=== PATIENT | female | born 1975 | race American Indian/Alaskan Native ===

== ENCOUNTER 2018-10-02 10:26 | Observation (INO) | payer OTHER ==
[2018-10-02 10:41] VITALS: BMI 42.5
--- NOTE | 2018-10-02 11:30 | C.PDOC ---
History Of Present Illness 43 y/o female presents to the ED complaining of 2 days of chest pain. States pain began while at work, and initially she attributed pain to a pulled muscle. However, pain is now persistent. Of note patient reports PMHx of DM and HTN. States she lost her insurance, and has not been taking her lisinopril or metformin for > 1 month now. She denies any SOB, fever, chills, sweats, cough, congestion, or URI symptoms. Time Seen by Provider: 10/02/18 11:05 Chief Complaint (Nursing): Chest Pain History Per: Patient History/Exam Limitations: no limitations Onset/Duration Of Symptoms: Days (x2) Current Symptoms Are (Timing): Still Present Past Medical History Reviewed: Historical Data, Nursing Documentation, Vital Signs Vital Signs: Last Vital Signs Temp 99.4 F 10/02/18 10:39 Pulse 98 H 10/02/18 10:39 Resp 18 10/02/18 10:39 BP 150/93 H 10/02/18 10:39 Pulse Ox 100 10/02/18 10:39 - Medical History PMH: Diabetes, HTN Surgical History: No Surg Hx Family History: States: No Known Family Hx - Social History Hx Tobacco Use: No Hx Alcohol Use: Yes Hx Substance Use: No - Immunization History Hx Tetanus Toxoid Vaccination: Yes Hx Influenza Vaccination: Yes Hx Pneumococcal Vaccination: No Review Of Systems Except As Marked, All Systems Reviewed And Found Negative. Constitutional: Negative for: Fever, Sweats Eyes: Negative for: Vision Change Cardiovascular: Positive for: Chest Pain. Negative for: Palpitations Respiratory: Negative for: Shortness of Breath Gastrointestinal: Negative for: Nausea, Vomiting Neurological: Negative for: Weakness, Numbness, Change in Speech, Headache, Dizziness Physical Exam - Physical Exam Appears: Non-toxic, No Acute Distress Skin: Normal Color, Warm, Dry Head: Atraumatic, Normacephalic Eye(s): bilateral: Normal Inspection, PERRL, EOMI Oral Mucosa: Moist Neck: Normal ROM Chest: Symmetrical, No Deformity, No Tenderness Cardiovascular: Rhythm Regular, No Murmur Respiratory: Normal Breath Sounds, No Rales, No Rhonchi, No Wheezing Gastrointestinal/Abdominal: Soft, No Tenderness, No Distention Rectal: Heme Negative Extremity: Bilateral: Atraumatic, Normal Color And Temperature, Normal ROM Neurological/Psych: Oriented x3, Normal Speech ED Course And Treatment - Laboratory Results Result Diagrams: 10/02/18 14:38 10/02/18 11:31 ECG: Interpreted By Me, Viewed By Me ECG Rhythm: Sinus Rhythm (at 99 bpm) ECG Interpretation: No Acute Changes O2 Sat by Pulse Oximetry: 100 (RA) Pulse Ox Interpretation: Normal - Other Rad CXR X-Ray: Read By Radiologist Interpretation: Accession No. : [id number]. Patient Name / ID : MIR SANDERS / [id number]. Exam Date : 10/02/2018 11:24:59 ( Approved ). Study Comment : Sex / Age : F / 43Y. Creator : Antionette Gomez MD. Dictator : Antionette Gomez MD. 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 Approver2 : Report Date : 10/02/2018 11:53:07. My Comment : . HISTORY: chest pain. COMPARISON: No prior. TECHNIQUE: Chest, one view. FINDINGS: Examination limited by habitus. LUNGS: No focal consolidation. Please note that chest x-ray has limited sensitivity for the detection of pulmonary masses. PLEURA: No significant pleural effusion identified. No definite pneumothorax . CARDIOVASCULAR: The cardiomediastinal silhouette appears within normal limits of size. No significant atherosclerotic calcification present. OSSEOUS STRUCTURES: No acute osseous abnormality identified. VISUALIZED UPPER ABDOMEN: Unremarkable. OTHER FINDINGS: None. IMPRESSION: No acute findings identified. - CT Scan/US pelvic US Other Rad Studies (CT/US): Read By Radiologist, Radiology Report Reviewed CT/US Interpretation: Accession No. : [id number]. Patient Name / ID : MIR SANDERS / [id number]. Exam Date : 10/02/2018 16:53:39 ( Approved ). Study Comment : Sex / Age : F / 43Y. Creator : Antionette Gomez MD. Dictator : Antionette Gomez MD. 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 Approver2 : Report Date : 10/02/2018 17:27:16. My Comment : . This report is currently processing and HAS NOT BEEN OFFICIALLY SIGNED BY THE PHYSICIAN - ESTIMATED TIME OF APPROVAL IS 10/02/2018 17:32. Date of service: 10/02/2018. HISTORY: anemia. COMPARISON: None available. TECHNIQUE: Transabdominal pelvic ultrasound. FINDINGS: UTERUS: Measures 17.1 x 8.0 x 12.0 cm. Anteverted. Numerous probable uterine fibroids measuring up to 7.1 cm at the fundus. 1.8 x 1.4 x 2.0 cm pedunculated fundal fibroid. 5.4 x 5.9 x 5.3 cm posterior uterine fibroid. 3.2 x 2.0 x 3.0 cm anterior uterine fibroid. 6.3 x 5.6 x 5.8 cm fundal fibroid. ENDOMETRIUM: Measures 1.5 cm in diameter. CERVIX: No cervical abnormality identified. RIGHT OVARY: Measures 3.6 x 1.8 x 2.6 cm. Blood flow is demonstrated. LEFT OVARY: Measures 3.1 x 1.7 x 3.3 cm. Blood flow is demonstrated. FREE FLUID: Small pelvic free fluid noted. OTHER FINDINGS: None. IMPRESSION: Fibroid uterus as above. Small pelvic free fluid. Progress Note: EKG reviewed, no acute changes. Cardiac work-up initiated i ncluding labs, CXR. Aspirin PO administered. Patient will be monitored on continuous scrap wheeler in the ED. Patient found to be extremely anemic. Patient now sts she has h/o anemia and is taking Iron supplement. Patient sts she never had any work ups for anemia. Case was discussed with who admits for patient's PMD. PRBS were ordered for transfusion. 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 - Scribe Statement The provider has reviewed the documentation as recorded by the Scribe (Briseyda Abreu) All medical record entries made by the Scribe were at my direction and personally dictated by me. I have reviewed the chart and agree that the record accurately reflects my personal performance of the history, physical exam, medical decision making, and the department course for this patient. I have also personally directed, reviewed, and agree with the discharge instructions and disposition. Decision To Admit - Pt Status Changed To: Hospital Disposition Of: Observation - . Bed Request Type: Telemetry Admitting Physician: Nilam Verdin Patient Diagnosis: Chest pain, Anemia
[2018-10-02 11:35] LABS: BASO # 0.1 K/uL (0.0-0.2); BASO % 1.1 % (0.0-2.0); EOS # 0.1 K/uL (0.0-0.7); EOS % 1.6 % (0.0-4.0); LYMPH % 30.2 % (20.0-40.0); MEAN CORPUSCULAR HEMOGLOBIN 18.1 pg (27.0-31.0); MEAN CORPUSCULAR HGB CONC 29.7 g/dL (33.0-37.0); MEAN PLATELET VOLUME 10.8 fL (7.2-11.7); MONO # 0.4 K/uL (0.0-0.8); MONO % 5.7 % (0.0-10.0); NEUT # 4.1 K/uL (1.8-7.0); NEUT % 61.4 % (50.0-75.0); NRBC % 0.1 % (0.0-2.0); RBC 3.75 Mil/uL (3.80-5.20); WHITE BLOOD COUNT 6.7 K/uL (4.8-10.8)
[2018-10-02 11:39] LABS: HCG,QUALITATIVE URINE NEGATIVE (NEGATIVE); HEMOGLOBIN 6.8 g/dL (11.0-16.0); MEAN CELL VOLUME 60.8 fL (81.0-99.0)
[2018-10-02 11:47] LABS: ALBUMIN 4.2 g/dL (3.5-5.0); ALT/SGPT 11 U/L (9-52); AST/SGOT 23 U/L (14-36); BLOOD UREA NITROGEN 11 mg/dL (7-17); CALCIUM 9.1 mg/dl (8.6-10.4); GFR NON-AFRICAN AMERICAN > 60; SQUAMOUS EPITHIAL 3 /hpf (0-5); URINE BACTERIA RARE (<OCC); URINE BILIRUBIN NEGATIVE (NEGATIVE); URINE BLOOD NEGATIVE (NEGATIVE); URINE CLARITY Clear (Clear); URINE COLOR Straw (YELLOW); URINE GLUCOSE (UA) 3+ mg/dL (Normal); URINE LEUKOCYTE ESTERASE TRACE Leu/uL (Negative); URINE PROTEIN 2+ mg/dL (NEGATIVE); URINE UROBILINOGEN NORMAL mg/dL (0.2-1.0)
[2018-10-02 11:55] LABS: PARTIAL THROMBOPLASTIN TIME 23 SECONDS (21-34)
--- NOTE | 2018-10-02 11:56 | RAD ---
HISTORY: chest pain COMPARISON: No prior. TECHNIQUE: Chest, one view. FINDINGS: Examination limited by habitus. LUNGS: No focal consolidation. Please note that chest x-ray has limited sensitivity for the detection of pulmonary masses. PLEURA: No significant pleural effusion identified. No definite pneumothorax . CARDIOVASCULAR: The cardiomediastinal silhouette appears within normal limits of size. No significant atherosclerotic calcification present. OSSEOUS STRUCTURES: No acute osseous abnormality identified. VISUALIZED UPPER ABDOMEN: Unremarkable. OTHER FINDINGS: None. IMPRESSION: No acute findings identified.
[2018-10-02 12:06] LABS: D DIMER < 200 ng/mlDDU (0-243)
[2018-10-02 12:10] LABS: CK-MB < 0.22 ng/mL (0.0-3.38)
[2018-10-02 14:44] LABS: HEMOGLOBIN 6.6 g/dL (11.0-16.0); MEAN CELL VOLUME 60.8 fL (81.0-99.0); MEAN CORPUSCULAR HGB CONC 29.6 g/dL (33.0-37.0); MEAN PLATELET VOLUME 9.3 fL (7.2-11.7); RBC 3.68 Mil/uL (3.80-5.20); RED CELL DISTRIBUTION WIDTH 19.7 % (11.5-14.5); WHITE BLOOD COUNT 6.8 K/uL (4.8-10.8)
[2018-10-02 15:14] LABS: IRON 14 ug/dL (37-170)
[2018-10-02 15:24] LABS: TOTAL IRON BINDING CAPACITY 406 ug/dL (250-450)
[2018-10-02 15:47] LABS: FERRITIN 4.2 ng/mL
--- NOTE | 2018-10-02 17:30 | US ---
Date of service: 10/02/2018 HISTORY: anemia COMPARISON: None available. TECHNIQUE: Transabdominal pelvic ultrasound. FINDINGS: UTERUS: Measures 17.1 x 8.0 x 12.0 cm. Anteverted. Numerous probable uterine fibroids measuring up to 7.1 cm at the fundus. 1.8 x 1.4 x 2.0 cm pedunculated fundal fibroid. 5.4 x 5.9 x 5.3 cm posterior uterine fibroid. 3.2 x 2.0 x 3.0 cm anterior uterine fibroid. 6.3 x 5.6 x 5.8 cm fundal fibroid. ENDOMETRIUM: Measures 1.5 cm in diameter. CERVIX: No cervical abnormality identified. RIGHT OVARY: Measures 3.6 x 1.8 x 2.6 cm. Blood flow is demonstrated. LEFT OVARY: Measures 3.1 x 1.7 x 3.3 cm. Blood flow is demonstrated. FREE FLUID: Small pelvic free fluid noted. OTHER FINDINGS: None. IMPRESSION: Fibroid uterus as above. Small pelvic free fluid.
--- NOTE | 2018-10-02 17:51 | CP.PCM.HP ---
Addendum entered and electronically signed by Crow Veram 10/03/18 07:08: Rectal Exam: No external hemorrhoids seen. No masses, nodules, or tenderness appreciated. No signs of bleeding. Medical student, Ting was present during the examination. Original Note: <Crow Verma - Last Filed: 10/02/18 18:16> History of Present Illness - History of Present Illness History of Present Illness: Patient is a 43 year old female with PMHx of HTN, DM-2, and anemia presenting with chest pain. 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 She describes the pain as having a pinching quality, located on her left and right side of her chest, and 5/10 in severity. She states that she took some ibuprofen and the chest pain resolved. However, the pain started again this morning at 3AM when she was walking to the bathroom. She states that she also had palpitations and decided to go to the ED. Patient states that she has been having palpitations for the past month. She describes the palpitations to be intermittent and only last a few seconds. She states that Ibuprofen makes the pain better and laying completely flat makes the pain worse. Patient states that she was diagnosed with iron deficiency anemia when she was 23. She denies ever having a blood transfusion. She denies chest pain on exertion, diaphoresis, pain radiating to her neck or extremities. She further denies fevers, chills, cough, shortness of breath, abdominal pain, nausea, vomiting, melena, hematemesis, hematochezia, hematuria, or other urinary symptoms. PMD: Dr. Blanca Machado PMHx: DM, HTN, iron deficiency anemia PSHx: denies Allergies: Penicillins- rash Family Hx: Mother has diabetes, father of colon and prostate cancer at 66 years old Social: Drinks wine and beer twice a week, denies tobacco and drug use. 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 Medications: Iron supplements, Metformin 1000mg PO BID, Lisinopril 10mg PO QD (Has not taken medications in the past 2 months due to insurance issues) Present on Admission - Present on Admission Any Indicators Present on Admission: No History of DVT/PE: No History of Uncontrolled Diabetes: No Urinary Catheter: No Decubitus Ulcer Present: No Review of Systems - Constitutional Constitutional: absent: Chills, Fatigue, Fever, Headache - EENT Eyes: absent: Blurred Vision, Change in Vision - Cardiovascular Cardiovascular: Chest Pain, Palpitations. absent: Diaphoresis, Dyspnea - Respiratory Respiratory: absent: Cough, Dyspnea, Hemoptysis, Dyspnea on Exertion, Wheezing - Gastrointestinal Gastrointestinal: absent: Abdominal Pain, Bloating, Coffee Ground Emesis, Constipation, Hematemesis, Hematochezia, Melena - Genitourinary Genitourinary: absent: Dysuria, Hematuria - Menstruation Menstruation: Normal Menses. absent: Heavy Menses - Musculoskeletal Musculoskeletal: absent: Arthralgias - Neurological Neurological: absent: Dizziness Past Patient History - Past Social History Smoking Status: Never Smoked - CARDIAC Hx Hypertension: Yes - ENDOCRINE/METABOLIC Hx Diabetes Mellitus Type 2: Yes - PSYCHIATRIC Hx Substance Use: No - SURGICAL HISTORY Hx Surgeries: No Meds Allergies/Adverse Reactions: Allergies Allergy/AdvReac Type Severity Reaction Status Date / Time Penicillins Allergy Verified 10/02/18 10:40 Physical Exam - Constitutional Appears: Well, Non-toxic, No Acute Distress - Head Exam Head Exam: ATRAUMATIC, NORMOCEPHALIC - Eye Exam Eye Exam: EOMI, Normal appearance, PERRL. absent: Scleral icterus - ENT Exam ENT Exam: Mucous Membranes Moist - Respiratory Exam Respiratory Exam: Clear to Auscultation Bilateral. absent: Accessory Muscle Use, Rales, Rhonchi, Wheezes, Respiratory Distress - Cardiovascular Exam Cardiovascular Exam: REGULAR RHYTHM, +S1, +S2. absent: Gallop, Rubs, Systolic Murmur Additional comments: Chest pain reproducible upon palpation of left costochondral joints between ribs 8-9 - GI/Abdominal Exam GI & Abdominal Exam: Normal Bowel Sounds, Soft. absent: Distended, Firm, Guarding, Tenderness - Extremities Exam Extremities exam: Positive for: normal capillary refill, normal inspection. Negative for: calf tenderness, pedal edema - Back Exam Back exam: absent: CVA tenderness (L), CVA tenderness (R) - Neurological Exam Neurological exam: Alert, CN II-XII Intact, Oriented x3 - Psychiatric Exam Psychiatric exam: Normal Affect, Normal Mood - Skin Skin Exam: Dry, Intact, Pallor (Pallor noted on bilateral hands), Warm Results - Vital Signs Recent Vital Signs: Last Vital Signs Temp 98.9 F 10/02/18 14:03 Pulse 72 10/02/18 15:32 Resp 20 10/02/18 15:32 BP 127/81 10/02/18 15:32 Pulse Ox 100 10/02/18 17:30 - Labs Result Diagrams: 10/02/18 14:38 10/02/18 11:31 Labs: Laboratory Results - last 24 hr 10/02/18 10/02/18 10/02/18 11:31 11:31 11:31 WBC 6.7 RBC 3.75 L Hgb 6.8 L D Hct 22.8 L MCV 60.8 L D MCH 18.1 L MCHC 29.7 L RDW 20.0 H Plt Count 246 MPV 10.8 Neut % (Auto) 61.4 Lymph % (Auto) 30.2 Perkins % (Auto) 5.7 Eos % (Auto) 1.6 Baso % (Auto) 1.1 Neut # (Auto) 4.1 Lymph # (Auto) 2.0 Perkins # (Auto) 0.4 Eos # (Auto) 0.1 Baso # (Auto) 0.1 Differential Comment Retic Count PT 11.0 INR 1.0 APTT 23 D-Dimer, Quantitative < 200 Sodium Potassium Chloride Carbon Dioxide Anion Gap BUN Creatinine Est GFR ( Amer) Est GFR (Non-Af Amer) Random Glucose Calcium Iron TIBC Ferritin Total Bilirubin AST ALT Alkaline Phosphatase Lactate Dehydrogenase Total Creatine Kinase CK-MB (Mass) Troponin I Total Protein Albumin Globulin Albumin/Globulin Ratio Urine Color Straw Urine Clarity Clear Urine pH 5.0 Ur Specific [place] 1.029 Urine Protein 2+ H Urine Glucose (UA) 3+ H Urine Ketones Negative Urine Blood Negative Urine Nitrate Negative Urine Bilirubin Negative Urine Urobilinogen Normal Ur Leukocyte Esterase Trace Urine WBC (Auto) 7 H Urine RBC (Auto) 2 Ur Squamous Epith Cells 3 Urine Bacteria Rare Urine HCG, Qual Negative Stool Occult Blood Alcohol, Quantitative Blood Type Antibody Screen 10/02/18 10/02/18 10/02/18 11:31 14:19 14:38 WBC 6.8 RBC 3.68 L Hgb 6.6 L Hct 22.4 L MCV 60.8 L MCH 18.0 L MCHC 29.6 L RDW 19.7 H Plt Count 248 MPV 9.3 Neut % (Auto) Lymph % (Auto) Perkins % (Auto) Eos % (Auto) Baso % (Auto) Neut # (Auto) Lymph # (Auto) Perkins # (Auto) Eos # (Auto) Baso # (Auto) Differential Comment Retic Count 2.8 H PT INR APTT D-Dimer, Quantitative Sodium 136 Potassium 4.2 Chloride 103 Carbon Dioxide 22 Anion Gap 15 BUN 11 Creatinine 0.5 L Est GFR ( Amer) > 60 Est GFR (Non-Af Amer) > 60 Random Glucose 352 H Calcium 9.1 Iron TIBC Ferritin Total Bilirubin 0.5 AST 23 ALT 11 Alkaline Phosphatase 88 Lactate Dehydrogenase Total Creatine Kinase 66 CK-MB (Mass) < 0.22 Troponin I < 0.0120 Total Protein 8.3 Albumin 4.2 Globulin 4.1 H Albumin/Globulin Ratio 1.0 Urine Color Urine Clarity Urine pH Ur Specific [place] Urine Protein Urine Glucose (UA) Urine Ketones Urine Blood Urine Nitrate Urine Bilirubin Urine Urobilinogen Ur Leukocyte Esterase Urine WBC (Auto) Urine RBC (Auto) Ur Squamous Epith Cells Urine Bacteria Urine HCG, Qual Stool Occult Blood Negative Alcohol, Quantitative Blood Type Antibody Screen 10/02/18 10/02/18 10/02/18 14:38 14:38 14:38 WBC RBC Hgb Hct MCV MCH MCHC RDW Plt Count MPV Neut % (Auto) Lymph % (Auto) [place] % (Auto) Eos % (Auto) Baso % (Auto) Neut # (Auto) Lymph # (Auto) Perkins # (Auto) Eos # (Auto) Baso # (Auto) Differential Comment Retic Count PT INR APTT D-Dimer, Quantitative Sodium Potassium Chloride Carbon Dioxide Anion Gap BUN Creatinine Est GFR ( Amer) Est GFR (Non-Af Amer) Random Glucose Calcium Iron 14 L TIBC 406 Ferritin 4.2 Total Bilirubin AST ALT Alkaline Phosphatase Lactate Dehydrogenase 489 Total Creatine Kinase CK-MB (Mass) Troponin I Total Protein Albumin Globulin Albumin/Globulin Ratio Urine Color Urine Clarity Urine pH Ur Specific [place] Urine Protein Urine Glucose (UA) Urine Ketones Urine Blood Urine Nitrate Urine Bilirubin Urine Urobilinogen Ur Leukocyte Esterase Urine WBC (Auto) Urine RBC (Auto) Ur Squamous Epith Cells Urine Bacteria Urine HCG, Qual Stool Occult Blood Alcohol, Quantitative Blood Type A POSITIVE Antibody Screen Negative 10/02/18 14:39 WBC RBC Hgb Hct MCV MCH MCHC RDW Plt Count MPV Neut % (Auto) Lymph % (Auto) Perkins % (Auto) Eos % (Auto) Baso % (Auto) Neut # (Auto) Lymph # (Auto) Perkins # (Auto) Eos # (Auto) Baso # (Auto) Differential Comment Retic Count PT INR APTT D-Dimer, Quantitative Sodium Potassium Chloride Carbon Dioxide Anion Gap BUN Creatinine Est GFR ( Amer) Est GFR (Non-Af Amer) Random Glucose Calcium Iron TIBC Ferritin Total Bilirubin AST ALT Alkaline Phosphatase Lactate Dehydrogenase Total Creatine Kinase CK-MB (Mass) Troponin I Total Protein Albumin Globulin Albumin/Globulin Ratio Urine Color Urine Clarity Urine pH Ur Specific [place] Urine Protein Urine Glucose (UA) Urine Ketones Urine Blood Urine Nitrate Urine Bilirubin Urine Urobilinogen Ur Leukocyte Esterase Urine WBC (Auto) Urine RBC (Auto) Ur Squamous Epith Cells Urine Bacteria Urine HCG, Qual Stool Occult Blood Alcohol, Quantitative < 10 Blood Type Antibody Screen Assessment & Plan - Assessment and Plan (Free Text) Assessment: Patient is a 43 year old female with PMHx of HTN, DM-2, and presenting with chest pain. Patient was found to have Hb of 6.8 on admission, will receive 2 units of PRBC. Plan: Chest pain: - Rule out ACS - Cardiac risks: HTN and DM-2 - Monitor on telemetry - EKG on admission: NSR @ 99 bpm, no ST changes - Serial EKG's: f/u - Echocardiogram: f/u - CXR (10/02): no acute disease Anemia: - Patient has a history of iron deficiency anemia, used to take iron supplements - Hb/Hct on admission: 6.8/22.8 - Type and cross - 2 units of PRBC - Stool occult blood: negative - Pelvic U/S: f/u - Iron studies: f/u - Heme/Onc, Dr. Rose Keane consulted - GI, Dr. Moore consulted Hx of DM: - ISS- low dose - Hypoglycemia protocol - Accuchecks ACHS - HgA1C: f/u - Lipid panel: f/u Hx of HTN: - Hold antihypertensives Hx of alcohol use: - Blood alcohol level: f/u Prophylaxis/diet: - SCD's - Chemical anticoagulants held 2/2 anemia - Protonix 40mg IV BID Case discussed with Dr. Velvet Verma, PGY-1 <Nilam Verdin V - Last Filed: 10/02/18 23:56> Results - Vital Signs Recent Vital Signs: Last Vital Signs Temp 98.5 F 10/02/18 22:50 Pulse 78 10/02/18 22:50 Resp 18 10/02/18 22:50 BP 119/77 10/02/18 22:50 Pulse Ox 98 10/02/18 19:12 - Labs Result Diagrams: 10/02/18 14:38 10/02/18 11:31 Labs: Laboratory Results - last 24 hr 10/02/18 10/02/18 10/02/18 11:31 11:31 11:31 WBC 6.7 RBC 3.75 L Hgb 6.8 L D Hct 22.8 L MCV 60.8 L D MCH 18.1 L MCHC 29.7 L RDW 20.0 H Plt Count 246 MPV 10.8 Neut % (Auto) 61.4 Lymph % (Auto) 30.2 Perkins % (Auto) 5.7 Eos % (Auto) 1.6 Baso % (Auto) 1.1 Neut # (Auto) 4.1 Lymph # (Auto) 2.0 Perkins # (Auto) 0.4 Eos # (Auto) 0.1 Baso # (Auto) 0.1 Differential Comment Retic Count PT 11.0 INR 1.0 APTT 23 D-Dimer, Quantitative < 200 Sodium Potassium Chloride Carbon Dioxide Anion Gap BUN Creatinine Est GFR ( Amer) Est GFR (Non-Af Amer) POC Glucose (mg/dL) Random Glucose Calcium Iron TIBC Ferritin Total Bilirubin AST ALT Alkaline Phosphatase Lactate Dehydrogenase Total Creatine Kinase CK-MB (Mass) Troponin I Total Protein Albumin Globulin Albumin/Globulin Ratio Urine Color Straw Urine Clarity Clear Urine pH 5.0 Ur Specific [place] 1.029 Urine Protein 2+ H Urine Glucose (UA) 3+ H Urine Ketones Negative Urine Blood Negative Urine Nitrate Negative Urine Bilirubin Negative Urine Urobilinogen Normal Ur Leukocyte Esterase Trace Urine WBC (Auto) 7 H Urine RBC (Auto) 2 Ur Squamous Epith Cells 3 Urine Bacteria Rare Urine HCG, Qual Negative Stool Occult Blood Alcohol, Quantitative Blood Type Antibody Screen 10/02/18 10/02/18 10/02/18 11:31 14:19 14:38 WBC 6.8 RBC 3.68 L Hgb 6.6 L Hct 22.4 L MCV 60.8 L MCH 18.0 L MCHC 29.6 L RDW 19.7 H Plt Count 248 MPV 9.3 Neut % (Auto) Lymph % (Auto) [place] % (Auto) Eos % (Auto) Baso % (Auto) Neut # (Auto) Lymph # (Auto) [place] # (Auto) Eos # (Auto) Baso # (Auto) Differential Comment Retic Count 2.8 H PT INR APTT D-Dimer, Quantitative Sodium 136 Potassium 4.2 Chloride 103 Carbon Dioxide 22 Anion Gap 15 BUN 11 Creatinine 0.5 L Est GFR ( Amer) > 60 Est GFR (Non-Af Amer) > 60 POC Glucose (mg/dL) Random Glucose 352 H Calcium 9.1 Iron TIBC Ferritin Total Bilirubin 0.5 AST 23 ALT 11 Alkaline Phosphatase 88 Lactate Dehydrogenase Total Creatine Kinase 66 CK-MB (Mass) < 0.22 Troponin I < 0.0120 Total Protein 8.3 Albumin 4.2 Globulin 4.1 H Albumin/Globulin Ratio 1.0 Urine Color Urine Clarity Urine pH Ur Specific [place] Urine Protein Urine Glucose (UA) Urine Ketones Urine Blood Urine Nitrate Urine Bilirubin Urine Urobilinogen Ur Leukocyte Esterase Urine WBC (Auto) Urine RBC (Auto) Ur Squamous Epith Cells Urine Bacteria Urine HCG, Qual Stool Occult Blood Negative Alcohol, Quantitative Blood Type Antibody Screen 10/02/18 10/02/18 10/02/18 14:38 14:38 14:38 WBC RBC Hgb Hct MCV MCH MCHC RDW Plt Count MPV Neut % (Auto) Lymph % (Auto) [place] % (Auto) Eos % (Auto) Baso % (Auto) Neut # (Auto) Lymph # (Auto) [place] # (Auto) Eos # (Auto) Baso # (Auto) Differential Comment Retic Count PT INR APTT D-Dimer, Quantitative Sodium Potassium Chloride Carbon Dioxide Anion Gap BUN Creatinine Est GFR ( Amer) Est GFR (Non-Af Amer) POC Glucose (mg/dL) Random Glucose Calcium Iron 14 L TIBC 406 Ferritin 4.2 Total Bilirubin AST ALT Alkaline Phosphatase Lactate Dehydrogenase 489 Total Creatine Kinase CK-MB (Mass) Troponin I Total Protein Albumin Globulin Albumin/Globulin Ratio Urine Color Urine Clarity Urine pH Ur Specific [place] Urine Protein Urine Glucose (UA) Urine Ketones Urine Blood Urine Nitrate Urine Bilirubin Urine Urobilinogen Ur Leukocyte Esterase Urine WBC (Auto) Urine RBC (Auto) Ur Squamous Epith Cells Urine Bacteria Urine HCG, Qual Stool Occult Blood Alcohol, Quantitative Blood Type A POSITIVE Antibody Screen Negative 10/02/18 10/02/18 10/02/18 14:39 18:23 21:15 WBC RBC Hgb Hct MCV MCH MCHC RDW Plt Count MPV Neut % (Auto) Lymph % (Auto) [place] % (Auto) Eos % (Auto) Baso % (Auto) Neut # (Auto) Lymph # (Auto) [place] # (Auto) Eos # (Auto) Baso # (Auto) Differential Comment Retic Count PT INR APTT D-Dimer, Quantitative Sodium Potassium Chloride Carbon Dioxide Anion Gap BUN Creatinine Est GFR ( Amer) Est GFR (Non-Af Amer) POC Glucose (mg/dL) 205 H Random Glucose Calcium Iron TIBC Ferritin Total Bilirubin AST ALT Alkaline Phosphatase Lactate Dehydrogenase Total Creatine Kinase CK-MB (Mass) Troponin I < 0.0120 Total Protein Albumin Globulin Albumin/Globulin Ratio Urine Color Urine Clarity Urine pH Ur Specific [place] Urine Protein Urine Glucose (UA) Urine Ketones Urine Blood Urine Nitrate Urine Bilirubin Urine Urobilinogen Ur Leukocyte Esterase Urine WBC (Auto) Urine RBC (Auto) Ur Squamous Epith Cells Urine Bacteria Urine HCG, Qual Stool Occult Blood Alcohol, Quantitative < 10 Blood Type Antibody Screen Attending/Attestation - Attestation I have personally seen and examined this patient.: Yes I have fully participated in the care of the patient.: Yes I have reviewed all pertinent clinical information: Yes Notes (Text): This is 43 year old Female with history of diabetes, hypertension, and iron deficiency anemia comes in to the ED reporting chest pain and associated palpitations. 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 Patient reports chest pain reoccurred today which was enough to bring her to the hospital. Patient also reports for the past month she has been having palpitations, which have lasted for seconds, which seem to resolve at rest, but did not worry here until today when she had chest pain. Patient has not had prior ME. She has cardiac risk factor for diabetes, and hypertension. She reports her insurance is not working and has not been able to cover her metformin and lisinopril which she is used to taking but has not taken for the past 2 months. Patient reports she was diagnosed with iron deficiency anemia at the age 23 and reports she would need to take iron supplements. She reports she lives in the [facility] [place] the [place]. I did indicate her in our EMR in 2016 that her hgb was 10 which surprised her but she reports she is compliant with her iron supplements prior to 2 months with her insurance issues. She reports she has never needed blood transfusions or seen a blood specialist. She denies history of fibriods or abnormal periods. Patient reports she last saw her OB-MEDICAID PLAN COMPLIANCE DIRECTOR through [facility] about 2 years ago, where completed pap which was normal and was told to come back in two years. 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 She reports he was diagnosed at age 66 but shortly after succumbed to cancer in 3-4 months of diagnoses. Patient herself has not had a colonoscopy or endoscopy. Patient at time of my exam is going for pelvic US to rule out integrated specialist origin. Resident has performed rectal which was negative. Stool occult. Repeat CBC prior to blood transfusion confirms hgb in the 6s. Resident has described risk involved with blood transfusion we will type and cross 2 units to give to patient overnight. I have spoken with ED PA, we have ordered reticulocyte count, ferritin, iron studies, and occult blood prior to blood transfusion. Assessment/Plan 1) Chest pain; Palpitations * Cardiac risks: HTN and DM-2 * Monitor on telemetry * EKG on admission: NSR @ 99 bpm, no ST changes * Serial EKG's with cardiac enzymes X3, 6 hours apart; initial troponin negative, ekg nsr * Echocardiogram: f/u * CXR (10/02): no acute disease * D-dimer: negative * Check; a1c, lipid panel, TSH, and Free T4 2) Symptomatic Anemia: * Heme/Onc, Dr. Rose Keane consulted * GI, Dr. Moore consulted * Patient has a prior history of iron deficiency anemia, used to take iron supplements * Hb/Hct on admission: 6.8/22.8 * Type and cross; 2 units of PRBC * Stool occult blood: negative * Pelvic U/S: f/u * Reticulocyte index: 0.75 (hypoproliferation) * Ferritin low * iron low * pending b12, folate 3) History of Diabetes * ISS- low dose * Hypoglycemia protocol * Accuchecks Q6H * Novolog sliding scale subq6H * HgA1C: f/u * Lipid panel: f/u 4) Hx of HTN: * Hold antihypertensives in light of anemia 5) Hx of alcohol use: * Blood alcohol level: negative * Note it is an occasional use * MCV is microcytic 6) Prophylaxis/diet: * SCD's * Chemical anticoagulants held 2/2 anemia * GI ppx: Protonix 40mg IV BID
[2018-10-02] MEDS ORDERED: (Novolog) Insulin Aspart, Recombinant 100 u/ml 10 ml vial SC SCH (22:00)
[2018-10-02] MEDS ORDERED: (Novolin R) Insulin Human Regular 100 units/ml vial SC SCH (22:00)
[2018-10-02] MEDS ORDERED: Glucagon Recombinant 1 mg Inj IM PRN (23:32)
[2018-10-02] MEDS ORDERED: Dextrose 50% SYRINGE Inj (50 ml) IV PRN (23:32)
[2018-10-03] MEDS: (Novolog) Insulin Aspart, Recombinant 100 u/ml 10 ml vial SC SCH ×5 (00:35→22:45)
[2018-10-03 01:36] LABS: CK-MB < 0.22 ng/mL (0.0-3.38)
[2018-10-03 07:28] LABS: BASO # 0.1 K/uL (0.0-0.2); BASO % 1.1 % (0.0-2.0); EOS # 0.1 K/uL (0.0-0.7); EOS % 1.1 % (0.0-4.0); HEMOGLOBIN 7.8 g/dL (11.0-16.0); LYMPH # 1.8 K/uL (1.0-4.3); LYMPH % 25.6 % (20.0-40.0); MEAN CELL VOLUME 64.7 fL (81.0-99.0); MEAN CORPUSCULAR HGB CONC 30.9 g/dL (33.0-37.0); MEAN PLATELET VOLUME 9.3 fL (7.2-11.7); MONO # 0.4 K/uL (0.0-0.8); MONO % 6.1 % (0.0-10.0); NEUT # 4.6 K/uL (1.8-7.0); NEUT % 66.1 % (50.0-75.0); RBC 3.93 Mil/uL (3.80-5.20); RED CELL DISTRIBUTION WIDTH 24.1 % (11.5-14.5); WHITE BLOOD COUNT 6.9 K/uL (4.8-10.8)
[2018-10-03 07:56] LABS: LDL CHOLESTEROL 109 mg/dL (0-129)
[2018-10-03 08:05] LABS: FREE T4 1.13 ng/dL (0.78-2.19)
[2018-10-03 08:10] LABS: ALB/GLOB RATIO 1.1 (1.0-2.1); ALBUMIN 3.8 g/dL (3.5-5.0); ALT/SGPT 16 U/L (9-52); AST/SGOT 28 U/L (14-36); BLOOD UREA NITROGEN 8 mg/dL (7-17); CALCIUM 8.8 mg/dl (8.6-10.4); GFR NON-AFRICAN AMERICAN > 60; HDL CHOLESTEROL 42 mg/dL (30-70)
[2018-10-03 08:55] VITALS: RESP 20
[2018-10-03 08:55] LABS: FOLATE 11.4 ng/mL
[2018-10-03] MEDS ORDERED: Ferric Sodium Gluconat Complex 62.5 mg/5 ml Vial IVPB SCH (10:45)
--- NOTE | 2018-10-03 11:12 | CP.PCM.CON ---
History of Present Illness - History of Present Illness History of Present Illness: 43 year old female with a history of DM, HTN, dysfunctional uterine bleeding, presenting with chest pain, found to have anemia. The patient notes to heavy periods and passage of clots. She notes to progressive shortness of breath and chest pain which prompted her to come to the hospital. She is s/p 2U PRBC and notes to feeling better. She no longer has chest pain. Pelvic ultrasound to reveal a fibroid uterus. Past medical history: DM, HTN, dysfunctional uterine bleeding. Past surgical history: Denies Family history: Father had colon cancer Social history: Denies tobacco, drinks alcohol socially, denies illicit drug use. Allergies: PCN Review of systems: All remaining review of systems including HEENT, cardio vascular, respiratory, gastrointestinal, genitourinary, musculoskeletal, dermatologic, neurologic, and psychiatric are negative unless mentioned in the HPI. Past Patient History - Past Social History Smoking Status: Never Smoked - CARDIAC Hx Hypertension: Yes - ENDOCRINE/METABOLIC Hx Diabetes Mellitus Type 2: Yes - PSYCHIATRIC Hx Substance Use: No - SURGICAL HISTORY Hx Surgeries: No Meds Allergies/Adverse Reactions: Allergies Allergy/AdvReac Type Severity Reaction Status Date / Time Penicillins Allergy Verified 10/02/18 10:40 - Medications Medications: Current Medications Dextrose (Dextrose 50% Inj) 0 ml IV STAT PRN; Protocol PRN Reason: Hypoglycemia Protocol Dextrose (Glutose 15) 0 gm PO ONCE PRN; Protocol PRN Reason: Hypoglycemia Protocol Glucagon (Glucagen Diagnostic Kit) 0 mg IM STAT PRN; Protocol PRN Reason: Hypoglycemia Protocol Dextrose (Dextrose 5% In Water 1000 Ml) 1,000 mls @ 0 mls/hr IV .Q0M PRN; Protocol PRN Reason: Hypoglycemia Protocol Influenza Virus Vaccine (Fluzone Quad [id number]) 60 mcg IM .ONCE ONE Stop: 10/04/18 10:01 Insulin Aspart (Novolog) 0 unit SC Q6H ACE; Protocol Last Admin: 10/03/18 06:02 Dose: Not Given Pantoprazole Sodium (Protonix Inj) 40 mg IVP Q12H ACE Last Admin: 10/03/18 04:12 Dose: 40 mg Pneumococcal Polyvalent Vaccine (Pneumovax 23 Vaccine) 0.5 ml IM .ONCE ONE Stop: 10/04/18 10:01 Physical Exam - Head Exam Head Exam: ATRAUMATIC - Eye Exam Eye Exam: Normal appearance - ENT Exam ENT Exam: Mucous Membranes Dry - Respiratory Exam Respiratory Exam: NORMAL BREATHING PATTERN - Cardiovascular Exam Cardiovascular Exam: +S1, +S2 - GI/Abdominal Exam GI & Abdominal Exam: Normal Bowel Sounds - Extremities Exam Extremities exam: Positive for: normal inspection - Neurological Exam Neurological exam: Oriented x3 - Psychiatric Exam Psychiatric exam: Normal Affect, Normal Mood - Skin Skin Exam: Warm Results - Vital Signs Recent Vital Signs: Last Vital Signs Temp 98.7 F 10/03/18 08:00 Pulse 75 10/03/18 08:00 Resp 20 10/03/18 08:00 BP 120/77 10/03/18 08:00 Pulse Ox 95 10/03/18 08:00 - Labs Result Diagrams: 10/03/18 07:18 10/03/18 07:18 Labs: Laboratory Results - last 24 hr 10/02/18 10/02/18 10/02/18 11:31 11:31 11:31 WBC 6.7 RBC 3.75 L Hgb 6.8 L D Hct 22.8 L MCV 60.8 L D MCH 18.1 L MCHC 29.7 L RDW 20.0 H Plt Count 246 MPV 10.8 Neut % (Auto) 61.4 Lymph % (Auto) 30.2 [place] % (Auto) 5.7 Eos % (Auto) 1.6 Baso % (Auto) 1.1 Neut # (Auto) 4.1 Lymph # (Auto) 2.0 [place] # (Auto) 0.4 Eos # (Auto) 0.1 Baso # (Auto) 0.1 Differential Comment Retic Count Haptoglobin PT 11.0 INR 1.0 APTT 23 D-Dimer, Quantitative < 200 Sodium Potassium Chloride Carbon Dioxide Anion Gap BUN Creatinine Est GFR ( Amer) Est GFR (Non-Af Amer) POC Glucose (mg/dL) Random Glucose Hemoglobin A1c Calcium Phosphorus Magnesium Iron TIBC Ferritin Total Bilirubin AST ALT Alkaline Phosphatase Lactate Dehydrogenase Total Creatine Kinase CK-MB (Mass) Troponin I Total Protein Albumin Globulin Albumin/Globulin Ratio Triglycerides Cholesterol LDL Cholesterol Direct HDL Cholesterol Vitamin B12 Folate Free T4 TSH 3rd Generation Urine Color Straw Urine Clarity Clear Urine pH 5.0 Ur Specific [place] 1.029 Urine Protein 2+ H Urine Glucose (UA) 3+ H Urine Ketones Negative Urine Blood Negative Urine Nitrate Negative Urine Bilirubin Negative Urine Urobilinogen Normal Ur Leukocyte Esterase Trace Urine WBC (Auto) 7 H Urine RBC (Auto) 2 Ur Squamous Epith Cells 3 Urine Bacteria Rare Urine HCG, Qual Negative Stool Occult Blood Alcohol, Quantitative Blood Type Antibody Screen 10/02/18 10/02/18 10/02/18 11:31 14:19 14:38 WBC 6.8 RBC 3.68 L Hgb 6.6 L Hct 22.4 L MCV 60.8 L MCH 18.0 L MCHC 29.6 L RDW 19.7 H Plt Count 248 MPV 9.3 Neut % (Auto) Lymph % (Auto) [place] % (Auto) Eos % (Auto) Baso % (Auto) Neut # (Auto) Lymph # (Auto) [place] # (Auto) Eos # (Auto) Baso # (Auto) Differential Comment Retic Count 2.8 H Haptoglobin PT INR APTT D-Dimer, Quantitative Sodium 136 Potassium 4.2 Chloride 103 Carbon Dioxide 22 Anion Gap 15 BUN 11 Creatinine 0.5 L Est GFR ( Amer) > 60 Est GFR (Non-Af Amer) > 60 POC Glucose (mg/dL) Random Glucose 352 H Hemoglobin A1c Calcium 9.1 Phosphorus Magnesium Iron TIBC Ferritin Total Bilirubin 0.5 AST 23 ALT 11 Alkaline Phosphatase 88 Lactate Dehydrogenase Total Creatine Kinase 66 CK-MB (Mass) < 0.22 Troponin I < 0.0120 Total Protein 8.3 Albumin 4.2 Globulin 4.1 H Albumin/Globulin Ratio 1.0 Triglycerides Cholesterol LDL Cholesterol Direct HDL Cholesterol Vitamin B12 Folate Free T4 TSH 3rd Generation Urine Color Urine Clarity Urine pH Ur Specific [place] Urine Protein Urine Glucose (UA) Urine Ketones Urine Blood Urine Nitrate Urine Bilirubin Urine Urobilinogen Ur Leukocyte Esterase Urine WBC (Auto) Urine RBC (Auto) Ur Squamous Epith Cells Urine Bacteria Urine HCG, Qual Stool Occult Blood Negative Alcohol, Quantitative Blood Type Antibody Screen 10/02/18 10/02/18 10/02/18 14:38 14:38 14:38 WBC RBC Hgb Hct MCV MCH MCHC RDW Plt Count MPV Neut % (Auto) Lymph % (Auto) [place] % (Auto) Eos % (Auto) Baso % (Auto) Neut # (Auto) Lymph # (Auto) [place] # (Auto) Eos # (Auto) Baso # (Auto) Differential Comment Retic Count Haptoglobin PT INR APTT D-Dimer, Quantitative Sodium Potassium Chloride Carbon Dioxide Anion Gap BUN Creatinine Est GFR ( Amer) Est GFR (Non-Af Amer) POC Glucose (mg/dL) Random Glucose Hemoglobin A1c Calcium Phosphorus Magnesium Iron 14 L TIBC 406 Ferritin 4.2 Total Bilirubin AST ALT Alkaline Phosphatase Lactate Dehydrogenase 489 Total Creatine Kinase CK-MB (Mass) Troponin I Total Protein Albumin Globulin Albumin/Globulin Ratio Triglycerides Cholesterol LDL Cholesterol Direct HDL Cholesterol Vitamin B12 Folate Free T4 TSH 3rd Generation Urine Color Urine Clarity Urine pH Ur Specific [place] Urine Protein Urine Glucose (UA) Urine Ketones Urine Blood Urine Nitrate Urine Bilirubin Urine Urobilinogen Ur Leukocyte Esterase Urine WBC (Auto) Urine RBC (Auto) Ur Squamous Epith Cells Urine Bacteria Urine HCG, Qual Stool Occult Blood Alcohol, Quantitative Blood Type A POSITIVE Antibody Screen Negative 10/02/18 10/02/18 10/02/18 14:39 18:23 21:15 WBC RBC Hgb Hct MCV MCH MCHC RDW Plt Count MPV Neut % (Auto) Lymph % (Auto) [place] % (Auto) Eos % (Auto) Baso % (Auto) Neut # (Auto) Lymph # (Auto) [place] # (Auto) Eos # (Auto) Baso # (Auto) Differential Comment Retic Count Haptoglobin PT INR APTT D-Dimer, Quantitative Sodium Potassium Chloride Carbon Dioxide Anion Gap BUN Creatinine Est GFR ( Amer) Est GFR (Non-Af Amer) POC Glucose (mg/dL) 205 H Random Glucose Hemoglobin A1c Calcium Phosphorus Magnesium Iron TIBC Ferritin Total Bilirubin AST ALT Alkaline Phosphatase Lactate Dehydrogenase Total Creatine Kinase CK-MB (Mass) Troponin I < 0.0120 Total Protein Albumin Globulin Albumin/Globulin Ratio Triglycerides Cholesterol LDL Cholesterol Direct HDL Cholesterol Vitamin B12 Folate Free T4 TSH 3rd Generation Urine Color Urine Clarity Urine pH Ur Specific [place] Urine Protein Urine Glucose (UA) Urine Ketones Urine Blood Urine Nitrate Urine Bilirubin Urine Urobilinogen Ur Leukocyte Esterase Urine WBC (Auto) Urine RBC (Auto) Ur Squamous Epith Cells Urine Bacteria Urine HCG, Qual Stool Occult Blood Alcohol, Quantitative < 10 Blood Type Antibody Screen 10/03/18 10/03/18 10/03/18 00:20 00:45 05:34 WBC RBC Hgb Hct MCV MCH MCHC RDW Plt Count MPV Neut % (Auto) Lymph % (Auto) [place] % (Auto) Eos % (Auto) Baso % (Auto) Neut # (Auto) Lymph # (Auto) [place] # (Auto) Eos # (Auto) Baso # (Auto) Differential Comment Retic Count Haptoglobin PT INR APTT D-Dimer, Quantitative Sodium Potassium Chloride Carbon Dioxide Anion Gap BUN Creatinine Est GFR ( Amer) Est GFR (Non-Af Amer) POC Glucose (mg/dL) 164 H 191 H Random Glucose Hemoglobin A1c Calcium Phosphorus Magnesium Iron TIBC Ferritin Total Bilirubin AST ALT Alkaline Phosphatase Lactate Dehydrogenase Total Creatine Kinase 62 CK-MB (Mass) < 0.22 Troponin I < 0.0120 Total Protein Albumin Globulin Albumin/Globulin Ratio Triglycerides Cholesterol LDL Cholesterol Direct HDL Cholesterol Vitamin B12 Folate Free T4 TSH 3rd Generation Urine Color Urine Clarity Urine pH Ur Specific [place] Urine Protein Urine Glucose (UA) Urine Ketones Urine Blood Urine Nitrate Urine Bilirubin Urine Urobilinogen Ur Leukocyte Esterase Urine WBC (Auto) Urine RBC (Auto) Ur Squamous Epith Cells Urine Bacteria Urine HCG, Qual Stool Occult Blood Alcohol, Quantitative Blood Type Antibody Screen 10/03/18 10/03/18 10/03/18 07:18 07:18 07:18 WBC 6.9 RBC 3.93 Hgb 7.8 L Hct 25.4 L MCV 64.7 L D MCH 20.0 L MCHC 30.9 L RDW 24.1 H Plt Count 219 MPV 9.3 Neut % (Auto) 66.1 Lymph % (Auto) 25.6 [place] % (Auto) 6.1 Eos % (Auto) 1.1 Baso % (Auto) 1.1 Neut # (Auto) 4.6 Lymph # (Auto) 1.8 [place] # (Auto) 0.4 Eos # (Auto) 0.1 Baso # (Auto) 0.1 Differential Comment Retic Count Haptoglobin 178.6 PT INR APTT D-Dimer, Quantitative Sodium 135 Potassium 3.6 Chloride 103 Carbon Dioxide 24 Anion Gap 11 BUN 8 Creatinine 0.5 L Est GFR ( Amer) > 60 Est GFR (Non-Af Amer) > 60 POC Glucose (mg/dL) Random Glucose 218 H Hemoglobin A1c Calcium 8.8 Phosphorus 3.7 Magnesium 1.9 Iron TIBC Ferritin Total Bilirubin 0.8 AST 28 ALT 16 Alkaline Phosphatase 92 Lactate Dehydrogenase Total Creatine Kinase CK-MB (Mass) Troponin I Total Protein 7.3 Albumin 3.8 Globulin 3.5 Albumin/Globulin Ratio 1.1 Triglycerides 199 H D Cholesterol 197 LDL Cholesterol Direct 109 HDL Cholesterol 42 Vitamin B12 427 Folate 11.4 Free T4 1.13 TSH 3rd Generation 1.78 Urine Color Urine Clarity Urine pH Ur Specific [place] Urine Protein Urine Glucose (UA) Urine Ketones Urine Blood Urine Nitrate Urine Bilirubin Urine Urobilinogen Ur Leukocyte Esterase Urine WBC (Auto) Urine RBC (Auto) Ur Squamous Epith Cells Urine Bacteria Urine HCG, Qual Stool Occult Blood Alcohol, Quantitative Blood Type Antibody Screen 10/03/18 07:18 WBC RBC Hgb Hct MCV MCH MCHC RDW Plt Count MPV Neut % (Auto) Lymph % (Auto) [place] % (Auto) Eos % (Auto) Baso % (Auto) Neut # (Auto) Lymph # (Auto) [place] # (Auto) Eos # (Auto) Baso # (Auto) Differential Comment Retic Count Haptoglobin PT INR APTT D-Dimer, Quantitative Sodium Potassium Chloride Carbon Dioxide Anion Gap BUN Creatinine Est GFR ( Amer) Est GFR (Non-Af Amer) POC Glucose (mg/dL) Random Glucose Hemoglobin A1c 9.2 H Calcium Phosphorus Magnesium Iron TIBC Ferritin Total Bilirubin AST ALT Alkaline Phosphatase Lactate Dehydrogenase Total Creatine Kinase CK-MB (Mass) Troponin I Total Protein Albumin Globulin Albumin/Globulin Ratio Triglycerides Cholesterol LDL Cholesterol Direct HDL Cholesterol Vitamin B12 Folate Free T4 TSH 3rd Generation Urine Color Urine Clarity Urine pH Ur Specific [place] Urine Protein Urine Glucose (UA) Urine Ketones Urine Blood Urine Nitrate Urine Bilirubin Urine Urobilinogen Ur Leukocyte Esterase Urine WBC (Auto) Urine RBC (Auto) Ur Squamous Epith Cells Urine Bacteria Urine HCG, Qual Stool Occult Blood Alcohol, Quantitative Blood Type Antibody Screen Assessment & Plan (1) Anemia Assessment and Plan: iron deficiency anemia from dysfunctional uterine bleeding secondary to uterine fibroids s/p PRBC transfusion will start IV iron outpatient [employer] outpatient f/u with me in 1 week Thank you for this interesting consult. Status: Acute
--- NOTE | 2018-10-03 11:22 | CP.PCM.CON ---
History of Present Illness - History of Present Illness History of Present Illness: Cody Delaney, PGY-[address] Diaz Ms. Hannah is a 43 F with Past medical history of HTN diagnosed in 2003, DM2 diagnosed in 2003, and Fe Deficiency Anemia who presents with atypical chest pain. 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 Patient reports she took an Ibuprofen 600 mg at that time that relieved the pain. Patient then reports she awoke the next morning at 3 am with throbbing pain on the L side of the chest that radiated to the R side. Patient reports a lingering R sided pain that has been relieved since her admission. This pain caused patient to come to ED for evaluation. Patient's last reported menstrual period was 09/06/18, which lasted for four days (reportedly normal for her) with large clots and a need to change pads 4-5 times a day. Patient states normally she feels cold even when her heat is on at home, and feels fatigue exacerbated during her menstrual periods. Patient reports that she has not taken her medications (Metformin 1000mg PO BID, Lisinopril 10mg PO QD , ferrous sulfate) for a few months due to complications with insurance. Patient recently reclaimed her insurance within last week. Patient denies any cardiac issues in immediate family, but reports colon cancer diagnosed at age 66 in her father and DM in her mother diagnosed in her 40s. Patient denies any past echo or stress tests performed. Patient denies tobacco use. Past Patient History - Past Social History Smoking Status: Never Smoked - CARDIAC Hx Hypertension: Yes - ENDOCRINE/METABOLIC Hx Diabetes Mellitus Type 2: Yes - PSYCHIATRIC Hx Substance Use: No - SURGICAL HISTORY Hx Surgeries: No Meds Allergies/Adverse Reactions: Allergies Allergy/AdvReac Type Severity Reaction Status Date / Time Penicillins Allergy Verified 10/02/18 10:40 - Medications Medications: Current Medications Dextrose (Dextrose 50% Inj) 0 ml IV STAT PRN; Protocol PRN Reason: Hypoglycemia Protocol Dextrose (Glutose 15) 0 gm PO ONCE PRN; Protocol PRN Reason: Hypoglycemia Protocol Ferric Sodium Gluconate Complex (Ferrlecit) 125 mg IVPB DAILY ACE Stop: 10/11/18 10:46 Glucagon (Glucagen Diagnostic Kit) 0 mg IM STAT PRN; Protocol PRN Reason: Hypoglycemia Protocol Dextrose (Dextrose 5% In Water 1000 Ml) 1,000 mls @ 0 mls/hr IV .Q0M PRN; Protocol PRN Reason: Hypoglycemia Protocol Influenza Virus Vaccine (Fluzone Quad [id number]) 60 mcg IM .ONCE ONE Stop: 10/04/18 10:01 Insulin Aspart (Novolog) 0 unit SC Q6H ACE; Protocol Last Admin: 10/03/18 06:02 Dose: Not Given Pantoprazole Sodium (Protonix Inj) 40 mg IVP Q12H ACE Last Admin: 10/03/18 04:12 Dose: 40 mg Pneumococcal Polyvalent Vaccine (Pneumovax 23 Vaccine) 0.5 ml IM .ONCE ONE Stop: 10/04/18 10:01 Physical Exam - Constitutional Appears: Well, Non-toxic, No Acute Distress - Head Exam Head Exam: ATRAUMATIC, NORMOCEPHALIC - Respiratory Exam Respiratory Exam: Clear to Auscultation Bilateral, NORMAL BREATHING PATTERN. absent: Chest Wall Tenderness - Cardiovascular Exam Cardiovascular Exam: RRR, +S1, +S2. absent: JVD - Extremities Exam Extremities exam: Negative for: pedal edema - Skin Skin Exam: Dry, Intact, Normal Color, Warm Results - Vital Signs Recent Vital Signs: Last Vital Signs Temp 98.7 F 10/03/18 08:00 Pulse 75 10/03/18 08:00 Resp 20 10/03/18 08:00 BP 120/77 10/03/18 08:00 Pulse Ox 95 10/03/18 08:00 - Labs Result Diagrams: 10/03/18 07:18 10/03/18 07:18 Labs: Laboratory Results - last 24 hr 10/02/18 10/02/18 10/02/18 11:31 11:31 11:31 WBC 6.7 RBC 3.75 L Hgb 6.8 L D Hct 22.8 L MCV 60.8 L D MCH 18.1 L MCHC 29.7 L RDW 20.0 H Plt Count 246 MPV 10.8 Neut % (Auto) 61.4 Lymph % (Auto) 30.2 [place] % (Auto) 5.7 Eos % (Auto) 1.6 Baso % (Auto) 1.1 Neut # (Auto) 4.1 Lymph # (Auto) 2.0 [place] # (Auto) 0.4 Eos # (Auto) 0.1 Baso # (Auto) 0.1 Differential Comment Retic Count Haptoglobin PT 11.0 INR 1.0 APTT 23 D-Dimer, Quantitative < 200 Sodium Potassium Chloride Carbon Dioxide Anion Gap BUN Creatinine Est GFR ( Amer) Est GFR (Non-Af Amer) POC Glucose (mg/dL) Random Glucose Hemoglobin A1c Calcium Phosphorus Magnesium Iron TIBC Ferritin Total Bilirubin AST ALT Alkaline Phosphatase Lactate Dehydrogenase Total Creatine Kinase CK-MB (Mass) Troponin I Total Protein Albumin Globulin Albumin/Globulin Ratio Triglycerides Cholesterol LDL Cholesterol Direct HDL Cholesterol Vitamin B12 Folate Free T4 TSH 3rd Generation Urine Color Straw Urine Clarity Clear Urine pH 5.0 Ur Specific [place] 1.029 Urine Protein 2+ H Urine Glucose (UA) 3+ H Urine Ketones Negative Urine Blood Negative Urine Nitrate Negative Urine Bilirubin Negative Urine Urobilinogen Normal Ur Leukocyte Esterase Trace Urine WBC (Auto) 7 H Urine RBC (Auto) 2 Ur Squamous Epith Cells 3 Urine Bacteria Rare Urine HCG, Qual Negative Stool Occult Blood Alcohol, Quantitative Blood Type Antibody Screen 10/02/18 10/02/18 10/02/18 11:31 14:19 14:38 WBC 6.8 RBC 3.68 L Hgb 6.6 L Hct 22.4 L MCV 60.8 L MCH 18.0 L MCHC 29.6 L RDW 19.7 H Plt Count 248 MPV 9.3 Neut % (Auto) Lymph % (Auto) [place] % (Auto) Eos % (Auto) Baso % (Auto) Neut # (Auto) Lymph # (Auto) [place] # (Auto) Eos # (Auto) Baso # (Auto) Differential Comment Retic Count 2.8 H Haptoglobin PT INR APTT D-Dimer, Quantitative Sodium 136 Potassium 4.2 Chloride 103 Carbon Dioxide 22 Anion Gap 15 BUN 11 Creatinine 0.5 L Est GFR ( Amer) > 60 Est GFR (Non-Af Amer) > 60 POC Glucose (mg/dL) Random Glucose 352 H Hemoglobin A1c Calcium 9.1 Phosphorus Magnesium Iron TIBC Ferritin Total Bilirubin 0.5 AST 23 ALT 11 Alkaline Phosphatase 88 Lactate Dehydrogenase Total Creatine Kinase 66 CK-MB (Mass) < 0.22 Troponin I < 0.0120 Total Protein 8.3 Albumin 4.2 Globulin 4.1 H Albumin/Globulin Ratio 1.0 Triglycerides Cholesterol LDL Cholesterol Direct HDL Cholesterol Vitamin B12 Folate Free T4 TSH 3rd Generation Urine Color Urine Clarity Urine pH Ur Specific [place] Urine Protein Urine Glucose (UA) Urine Ketones Urine Blood Urine Nitrate Urine Bilirubin Urine Urobilinogen Ur Leukocyte Esterase Urine WBC (Auto) Urine RBC (Auto) Ur Squamous Epith Cells Urine Bacteria Urine HCG, Qual Stool Occult Blood Negative Alcohol, Quantitative Blood Type Antibody Screen 10/02/18 10/02/18 10/02/18 14:38 14:38 14:38 WBC RBC Hgb Hct MCV MCH MCHC RDW Plt Count MPV Neut % (Auto) Lymph % (Auto) [place] % (Auto) Eos % (Auto) Baso % (Auto) Neut # (Auto) Lymph # (Auto) [place] # (Auto) Eos # (Auto) Baso # (Auto) Differential Comment Retic Count Haptoglobin PT INR APTT D-Dimer, Quantitative Sodium Potassium Chloride Carbon Dioxide Anion Gap BUN Creatinine Est GFR ( Amer) Est GFR (Non-Af Amer) POC Glucose (mg/dL) Random Glucose Hemoglobin A1c Calcium Phosphorus Magnesium Iron 14 L TIBC 406 Ferritin 4.2 Total Bilirubin AST ALT Alkaline Phosphatase Lactate Dehydrogenase 489 Total Creatine Kinase CK-MB (Mass) Troponin I Total Protein Albumin Globulin Albumin/Globulin Ratio Triglycerides Cholesterol LDL Cholesterol Direct HDL Cholesterol Vitamin B12 Folate Free T4 TSH 3rd Generation Urine Color Urine Clarity Urine pH Ur Specific [place] Urine Protein Urine Glucose (UA) Urine Ketones Urine Blood Urine Nitrate Urine Bilirubin Urine Urobilinogen Ur Leukocyte Esterase Urine WBC (Auto) Urine RBC (Auto) Ur Squamous Epith Cells Urine Bacteria Urine HCG, Qual Stool Occult Blood Alcohol, Quantitative Blood Type A POSITIVE Antibody Screen Negative 10/02/18 10/02/18 10/02/18 14:39 18:23 21:15 WBC RBC Hgb Hct MCV MCH MCHC RDW Plt Count MPV Neut % (Auto) Lymph % (Auto) [place] % (Auto) Eos % (Auto) Baso % (Auto) Neut # (Auto) Lymph # (Auto) [place] # (Auto) Eos # (Auto) Baso # (Auto) Differential Comment Retic Count Haptoglobin PT INR APTT D-Dimer, Quantitative Sodium Potassium Chloride Carbon Dioxide Anion Gap BUN Creatinine Est GFR ( Amer) Est GFR (Non-Af Amer) POC Glucose (mg/dL) 205 H Random Glucose Hemoglobin A1c Calcium Phosphorus Magnesium Iron TIBC Ferritin Total Bilirubin AST ALT Alkaline Phosphatase Lactate Dehydrogenase Total Creatine Kinase CK-MB (Mass) Troponin I < 0.0120 Total Protein Albumin Globulin Albumin/Globulin Ratio Triglycerides Cholesterol LDL Cholesterol Direct HDL Cholesterol Vitamin B12 Folate Free T4 TSH 3rd Generation Urine Color Urine Clarity Urine pH Ur Specific [place] Urine Protein Urine Glucose (UA) Urine Ketones Urine Blood Urine Nitrate Urine Bilirubin Urine Urobilinogen Ur Leukocyte Esterase Urine WBC (Auto) Urine RBC (Auto) Ur Squamous Epith Cells Urine Bacteria Urine HCG, Qual Stool Occult Blood Alcohol, Quantitative < 10 Blood Type Antibody Screen 10/03/18 10/03/18 10/03/18 00:20 00:45 05:34 WBC RBC Hgb Hct MCV MCH MCHC RDW Plt Count MPV Neut % (Auto) Lymph % (Auto) [place] % (Auto) Eos % (Auto) Baso % (Auto) Neut # (Auto) Lymph # (Auto) [place] # (Auto) Eos # (Auto) Baso # (Auto) Differential Comment Retic Count Haptoglobin PT INR APTT D-Dimer, Quantitative Sodium Potassium Chloride Carbon Dioxide Anion Gap BUN Creatinine Est GFR ( Amer) Est GFR (Non-Af Amer) POC Glucose (mg/dL) 164 H 191 H Random Glucose Hemoglobin A1c Calcium Phosphorus Magnesium Iron TIBC Ferritin Total Bilirubin AST ALT Alkaline Phosphatase Lactate Dehydrogenase Total Creatine Kinase 62 CK-MB (Mass) < 0.22 Troponin I < 0.0120 Total Protein Albumin Globulin Albumin/Globulin Ratio Triglycerides Cholesterol LDL Cholesterol Direct HDL Cholesterol Vitamin B12 Folate Free T4 TSH 3rd Generation Urine Color Urine Clarity Urine pH Ur Specific [place] Urine Protein Urine Glucose (UA) Urine Ketones Urine Blood Urine Nitrate Urine Bilirubin Urine Urobilinogen Ur Leukocyte Esterase Urine WBC (Auto) Urine RBC (Auto) Ur Squamous Epith Cells Urine Bacteria Urine HCG, Qual Stool Occult Blood Alcohol, Quantitative Blood Type Antibody Screen 10/03/18 10/03/18 10/03/18 07:18 07:18 07:18 WBC 6.9 RBC 3.93 Hgb 7.8 L Hct 25.4 L MCV 64.7 L D MCH 20.0 L MCHC 30.9 L RDW 24.1 H Plt Count 219 MPV 9.3 Neut % (Auto) 66.1 Lymph % (Auto) 25.6 [place] % (Auto) 6.1 Eos % (Auto) 1.1 Baso % (Auto) 1.1 Neut # (Auto) 4.6 Lymph # (Auto) 1.8 [place] # (Auto) 0.4 Eos # (Auto) 0.1 Baso # (Auto) 0.1 Differential Comment Retic Count Haptoglobin 178.6 PT INR APTT D-Dimer, Quantitative Sodium 135 Potassium 3.6 Chloride 103 Carbon Dioxide 24 Anion Gap 11 BUN 8 Creatinine 0.5 L Est GFR ( Amer) > 60 Est GFR (Non-Af Amer) > 60 POC Glucose (mg/dL) Random Glucose 218 H Hemoglobin A1c Calcium 8.8 Phosphorus 3.7 Magnesium 1.9 Iron TIBC Ferritin Total Bilirubin 0.8 AST 28 ALT 16 Alkaline Phosphatase 92 Lactate Dehydrogenase Total Creatine Kinase CK-MB (Mass) Troponin I Total Protein 7.3 Albumin 3.8 Globulin 3.5 Albumin/Globulin Ratio 1.1 Triglycerides 199 H D Cholesterol 197 LDL Cholesterol Direct 109 HDL Cholesterol 42 Vitamin B12 427 Folate 11.4 Free T4 1.13 TSH 3rd Generation 1.78 Urine Color Urine Clarity Urine pH Ur Specific [place] Urine Protein Urine Glucose (UA) Urine Ketones Urine Blood Urine Nitrate Urine Bilirubin Urine Urobilinogen Ur Leukocyte Esterase Urine WBC (Auto) Urine RBC (Auto) Ur Squamous Epith Cells Urine Bacteria Urine HCG, Qual Stool Occult Blood Alcohol, Quantitative Blood Type Antibody Screen 10/03/18 07:18 WBC RBC Hgb Hct MCV MCH MCHC RDW Plt Count MPV Neut % (Auto) Lymph % (Auto) [place] % (Auto) Eos % (Auto) Baso % (Auto) Neut # (Auto) Lymph # (Auto) [place] # (Auto) Eos # (Auto) Baso # (Auto) Differential Comment Retic Count Haptoglobin PT INR APTT D-Dimer, Quantitative Sodium Potassium Chloride Carbon Dioxide Anion Gap BUN Creatinine Est GFR ( Amer) Est GFR (Non-Af Amer) POC Glucose (mg/dL) Random Glucose Hemoglobin A1c 9.2 H Calcium Phosphorus Magnesium Iron TIBC Ferritin Total Bilirubin AST ALT Alkaline Phosphatase Lactate Dehydrogenase Total Creatine Kinase CK-MB (Mass) Troponin I Total Protein Albumin Globulin Albumin/Globulin Ratio Triglycerides Cholesterol LDL Cholesterol Direct HDL Cholesterol Vitamin B12 Folate Free T4 TSH 3rd Generation Urine Color Urine Clarity Urine pH Ur Specific [place] Urine Protein Urine Glucose (UA) Urine Ketones Urine Blood Urine Nitrate Urine Bilirubin Urine Urobilinogen Ur Leukocyte Esterase Urine WBC (Auto) Urine RBC (Auto) Ur Squamous Epith Cells Urine Bacteria Urine HCG, Qual Stool Occult Blood Alcohol, Quantitative Blood Type Antibody Screen Assessment & Plan - Assessment and Plan (Free Text) Assessment: Ms. Hannah is a 43 F with PMHx of DM, HTN, and Fe Def anemia s/p 2 units PRBC transfusion who presents with atypical chest pain. Atypical chest pain Substernal throbbing pain associated with paroxysmal palpitations, exacerbated by patient activity, pain radiation to shoulders ASA loading dose given in ED Troponins negative x3 EKG upon presentation shows NSR @ 67 bpm, no ST or T wave changes, f/u final read F/u echo to be performed today F/u repeat EKG Exercise stress test to be performed tomorrow AM 10/04/18 If stress negative tomorrow AM, can be discharged on medical therapy Reviewed importance of close follow up Microcytic Fe Deficiency Anemia Hgb 6.8 on admission, MCV 60s, improved to 7.8 s/p 2 units PRBC transfused Currently not on ASA, NSAID or antiplatelet therapy due to risk of bleeding Continue to monitor as per GI and Hem recommendations Patient seen, case reviewed. Further recs per Dr. Diaz. Cody Delaney, PGY-1
--- NOTE | 2018-10-03 11:24 | CP.PCM.CON ---
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 Upon evaluation it was noted patient has a marked microcytic anemia and GI consult was requested. Patient has a long history of known Iron deficiency anemia, managed with oral iron replacement by her PCP DR Salgado, likely due to menorrhagia and heavy clots with menses every month, and now exacerbated because she admits to iron non compliance x 1 month. Patient denies any alarming GI symptoms. Stool OB is negative. Review of Systems - Constitutional Constitutional: absent: Weight Loss, Weakness - EENT Eyes: absent: Change in Vision Ears: absent: Ear Pain Nose/Mouth/Throat: absent: Epistaxis - Breasts Breasts: absent: Mass - Cardiovascular Cardiovascular: Chest Pain. absent: Dyspnea on Exertion - Respiratory Respiratory: absent: Cough, Dyspnea - Gastrointestinal Gastrointestinal: absent: Abdominal Pain, Change in Bowel Habits, Hematochezia, Melena - Genitourinary Genitourinary: absent: Dysuria - Reproductive: Female Reproductive:Female: Heavy Menses - Musculoskeletal Musculoskeletal: absent: Back Pain - Integumentary Integumentary: absent: Jaundice - Neurological Neurological: absent: Weakness - Psychiatric Psychiatric: absent: Behavioral Changes - Hematologic/Lymphatic Hematologic: absent: Easy Bruising Past Patient History - Past Medical History & Family History Pertinent Family History: Father- Colon Cancer - Past Social History Smoking Status: Never Smoked - CARDIAC Hx Hypertension: Yes - ENDOCRINE/METABOLIC Hx Diabetes Mellitus Type 2: Yes - PSYCHIATRIC Hx Substance Use: No - SURGICAL HISTORY Hx Surgeries: No Meds Allergies/Adverse Reactions: Allergies Allergy/AdvReac Type Severity Reaction Status Date / Time Penicillins Allergy Verified 10/02/18 10:40 - Medications Medications: Current Medications Dextrose (Dextrose 50% Inj) 0 ml IV STAT PRN; Protocol PRN Reason: Hypoglycemia Protocol Dextrose (Glutose 15) 0 gm PO ONCE PRN; Protocol PRN Reason: Hypoglycemia Protocol Ferric Sodium Gluconate Complex (Ferrlecit) 125 mg IVPB DAILY ACE Stop: 10/11/18 10:46 Glucagon (Glucagen Diagnostic Kit) 0 mg IM STAT PRN; Protocol PRN Reason: Hypoglycemia Protocol Dextrose (Dextrose 5% In Water 1000 Ml) 1,000 mls @ 0 mls/hr IV .Q0M PRN; Protocol PRN Reason: Hypoglycemia Protocol Influenza Virus Vaccine (Fluzone Quad [id number]) 60 mcg IM .ONCE ONE Stop: 10/04/18 10:01 Insulin Aspart (Novolog) 0 unit SC Q6H ACE; Protocol Last Admin: 10/03/18 06:02 Dose: Not Given Pantoprazole Sodium (Protonix Inj) 40 mg IVP Q12H [facility] Last Admin: 10/03/18 04:12 Dose: 40 mg Pneumococcal Polyvalent Vaccine (Pneumovax 23 Vaccine) 0.5 ml IM .ONCE ONE Stop: 10/04/18 10:01 Physical Exam - Constitutional Appears: Well, No Acute Distress - Head Exam Head Exam: NORMOCEPHALIC - Eye Exam Eye Exam: absent: Scleral icterus - ENT Exam ENT Exam: Normal Exam - Neck Exam Neck exam: Positive for: Normal Inspection - Respiratory Exam Respiratory Exam: NORMAL BREATHING PATTERN - Cardiovascular Exam Cardiovascular Exam: REGULAR RHYTHM - GI/Abdominal Exam GI & Abdominal Exam: Soft. absent: Mass, Tenderness - Rectal Exam Rectal Exam: Deferred - Extremities Exam Extremities exam: Positive for: normal inspection - Neurological Exam Neurological exam: Alert, Oriented x3 - Psychiatric Exam Psychiatric exam: Normal Affect, Normal Mood - Skin Skin Exam: Normal Color Results - Vital Signs Recent Vital Signs: Last Vital Signs Temp 98.7 F 10/03/18 08:00 Pulse 75 10/03/18 08:00 Resp 20 10/03/18 08:00 BP 120/77 10/03/18 08:00 Pulse Ox 95 10/03/18 08:00 - Labs Result Diagrams: 10/03/18 07:18 10/03/18 07:18 Labs: Laboratory Results - last 24 hr 10/02/18 10/02/18 10/02/18 11:31 11:31 11:31 WBC 6.7 RBC 3.75 L Hgb 6.8 L D Hct 22.8 L MCV 60.8 L D MCH 18.1 L MCHC 29.7 L RDW 20.0 H Plt Count 246 MPV 10.8 Neut % (Auto) 61.4 Lymph % (Auto) 30.2 Josephine % (Auto) 5.7 Eos % (Auto) 1.6 Baso % (Auto) 1.1 Neut # (Auto) 4.1 Lymph # (Auto) 2.0 Josephine # (Auto) 0.4 Eos # (Auto) 0.1 Baso # (Auto) 0.1 Differential Comment Retic Count Haptoglobin PT 11.0 INR 1.0 APTT 23 D-Dimer, Quantitative < 200 Sodium Potassium Chloride Carbon Dioxide Anion Gap BUN Creatinine Est GFR ( Amer) Est GFR (Non-Af Amer) POC Glucose (mg/dL) Random Glucose Hemoglobin A1c Calcium Phosphorus Magnesium Iron TIBC Ferritin Total Bilirubin AST ALT Alkaline Phosphatase Lactate Dehydrogenase Total Creatine Kinase CK-MB (Mass) Troponin I Total Protein Albumin Globulin Albumin/Globulin Ratio Triglycerides Cholesterol LDL Cholesterol Direct HDL Cholesterol Vitamin B12 Folate Free T4 TSH 3rd Generation Urine Color Straw Urine Clarity Clear Urine pH 5.0 Ur Specific [place] 1.029 Urine Protein 2+ H Urine Glucose (UA) 3+ H Urine Ketones Negative Urine Blood Negative Urine Nitrate Negative Urine Bilirubin Negative Urine Urobilinogen Normal Ur Leukocyte Esterase Trace Urine WBC (Auto) 7 H Urine RBC (Auto) 2 Ur Squamous Epith Cells 3 Urine Bacteria Rare Urine HCG, Qual Negative Stool Occult Blood Alcohol, Quantitative Blood Type Antibody Screen 10/02/18 10/02/18 10/02/18 11:31 14:19 14:38 WBC 6.8 RBC 3.68 L Hgb 6.6 L Hct 22.4 L MCV 60.8 L MCH 18.0 L MCHC 29.6 L RDW 19.7 H Plt Count 248 MPV 9.3 Neut % (Auto) Lymph % (Auto) Josephine % (Auto) Eos % (Auto) Baso % (Auto) Neut # (Auto) Lymph # (Auto) Josephine # (Auto) Eos # (Auto) Baso # (Auto) Differential Comment Retic Count 2.8 H Haptoglobin PT INR APTT D-Dimer, Quantitative Sodium 136 Potassium 4.2 Chloride 103 Carbon Dioxide 22 Anion Gap 15 BUN 11 Creatinine 0.5 L Est GFR ( Amer) > 60 Est GFR (Non-Af Amer) > 60 POC Glucose (mg/dL) Random Glucose 352 H Hemoglobin A1c Calcium 9.1 Phosphorus Magnesium Iron TIBC Ferritin Total Bilirubin 0.5 AST 23 ALT 11 Alkaline Phosphatase 88 Lactate Dehydrogenase Total Creatine Kinase 66 CK-MB (Mass) < 0.22 Troponin I < 0.0120 Total Protein 8.3 Albumin 4.2 Globulin 4.1 H Albumin/Globulin Ratio 1.0 Triglycerides Cholesterol LDL Cholesterol Direct HDL Cholesterol Vitamin B12 Folate Free T4 TSH 3rd Generation Urine Color Urine Clarity Urine pH Ur Specific [place] Urine Protein Urine Glucose (UA) Urine Ketones Urine Blood Urine Nitrate Urine Bilirubin Urine Urobilinogen Ur Leukocyte Esterase Urine WBC (Auto) Urine RBC (Auto) Ur Squamous Epith Cells Urine Bacteria Urine HCG, Qual Stool Occult Blood Negative Alcohol, Quantitative Blood Type Antibody Screen 10/02/18 10/02/18 10/02/18 14:38 14:38 14:38 WBC RBC Hgb Hct MCV MCH MCHC RDW Plt Count MPV Neut % (Auto) Lymph % (Auto) Josephine % (Auto) Eos % (Auto) Baso % (Auto) Neut # (Auto) Lymph # (Auto) Josephine # (Auto) Eos # (Auto) Baso # (Auto) Differential Comment Retic Count Haptoglobin PT INR APTT D-Dimer, Quantitative Sodium Potassium Chloride Carbon Dioxide Anion Gap BUN Creatinine Est GFR ( Amer) Est GFR (Non-Af Amer) POC Glucose (mg/dL) Random Glucose Hemoglobin A1c Calcium Phosphorus Magnesium Iron 14 L TIBC 406 Ferritin 4.2 Total Bilirubin AST ALT Alkaline Phosphatase Lactate Dehydrogenase 489 Total Creatine Kinase CK-MB (Mass) Troponin I Total Protein Albumin Globulin Albumin/Globulin Ratio Triglycerides Cholesterol LDL Cholesterol Direct HDL Cholesterol Vitamin B12 Folate Free T4 TSH 3rd Generation Urine Color Urine Clarity Urine pH Ur Specific [place] Urine Protein Urine Glucose (UA) Urine Ketones Urine Blood Urine Nitrate Urine Bilirubin Urine Urobilinogen Ur Leukocyte Esterase Urine WBC (Auto) Urine RBC (Auto) Ur Squamous Epith Cells Urine Bacteria Urine HCG, Qual Stool Occult Blood Alcohol, Quantitative Blood Type A POSITIVE Antibody Screen Negative 10/02/18 10/02/18 10/02/18 14:39 18:23 21:15 WBC RBC Hgb Hct MCV MCH MCHC RDW Plt Count MPV Neut % (Auto) Lymph % (Auto) Josephine % (Auto) Eos % (Auto) Baso % (Auto) Neut # (Auto) Lymph # (Auto) Josephine # (Auto) Eos # (Auto) Baso # (Auto) Differential Comment Retic Count Haptoglobin PT INR APTT D-Dimer, Quantitative Sodium Potassium Chloride Carbon Dioxide Anion Gap BUN Creatinine Est GFR ( Amer) Est GFR (Non-Af Amer) POC Glucose (mg/dL) 205 H Random Glucose Hemoglobin A1c Calcium Phosphorus Magnesium Iron TIBC Ferritin Total Bilirubin AST ALT Alkaline Phosphatase Lactate Dehydrogenase Total Creatine Kinase CK-MB (Mass) Troponin I < 0.0120 Total Protein Albumin Globulin Albumin/Globulin Ratio Triglycerides Cholesterol LDL Cholesterol Direct HDL Cholesterol Vitamin B12 Folate Free T4 TSH 3rd Generation Urine Color Urine Clarity Urine pH Ur Specific [place] Urine Protein Urine Glucose (UA) Urine Ketones Urine Blood Urine Nitrate Urine Bilirubin Urine Urobilinogen Ur Leukocyte Esterase Urine WBC (Auto) Urine RBC (Auto) Ur Squamous Epith Cells Urine Bacteria Urine HCG, Qual Stool Occult Blood Alcohol, Quantitative < 10 Blood Type Antibody Screen 10/03/18 10/03/18 10/03/18 00:20 00:45 05:34 WBC RBC Hgb Hct MCV MCH MCHC RDW Plt Count MPV Neut % (Auto) Lymph % (Auto) Josephine % (Auto) Eos % (Auto) Baso % (Auto) Neut # (Auto) Lymph # (Auto) Josephine # (Auto) Eos # (Auto) Baso # (Auto) Differential Comment Retic Count Haptoglobin PT INR APTT D-Dimer, Quantitative Sodium Potassium Chloride Carbon Dioxide Anion Gap BUN Creatinine Est GFR ( Amer) Est GFR (Non-Af Amer) POC Glucose (mg/dL) 164 H 191 H Random Glucose Hemoglobin A1c Calcium Phosphorus Magnesium Iron TIBC Ferritin Total Bilirubin AST ALT Alkaline Phosphatase Lactate Dehydrogenase Total Creatine Kinase 62 CK-MB (Mass) < 0.22 Troponin I < 0.0120 Total Protein Albumin Globulin Albumin/Globulin Ratio Triglycerides Cholesterol LDL Cholesterol Direct HDL Cholesterol Vitamin B12 Folate Free T4 TSH 3rd Generation Urine Color Urine Clarity Urine pH Ur Specific [place] Urine Protein Urine Glucose (UA) Urine Ketones Urine Blood Urine Nitrate Urine Bilirubin Urine Urobilinogen Ur Leukocyte Esterase Urine WBC (Auto) Urine RBC (Auto) Ur Squamous Epith Cells Urine Bacteria Urine HCG, Qual Stool Occult Blood Alcohol, Quantitative Blood Type Antibody Screen 10/03/18 10/03/18 10/03/18 07:18 07:18 07:18 WBC 6.9 RBC 3.93 Hgb 7.8 L Hct 25.4 L MCV 64.7 L D MCH 20.0 L MCHC 30.9 L RDW 24.1 H Plt Count 219 MPV 9.3 Neut % (Auto) 66.1 Lymph % (Auto) 25.6 Josephine % (Auto) 6.1 Eos % (Auto) 1.1 Baso % (Auto) 1.1 Neut # (Auto) 4.6 Lymph # (Auto) 1.8 Josephine # (Auto) 0.4 Eos # (Auto) 0.1 Baso # (Auto) 0.1 Differential Comment Retic Count Haptoglobin 178.6 PT INR APTT D-Dimer, Quantitative Sodium 135 Potassium 3.6 Chloride 103 Carbon Dioxide 24 Anion Gap 11 BUN 8 Creatinine 0.5 L Est GFR ( Amer) > 60 Est GFR (Non-Af Amer) > 60 POC Glucose (mg/dL) Random Glucose 218 H Hemoglobin A1c Calcium 8.8 Phosphorus 3.7 Magnesium 1.9 Iron TIBC Ferritin Total Bilirubin 0.8 AST 28 ALT 16 Alkaline Phosphatase 92 Lactate Dehydrogenase Total Creatine Kinase CK-MB (Mass) Troponin I Total Protein 7.3 Albumin 3.8 Globulin 3.5 Albumin/Globulin Ratio 1.1 Triglycerides 199 H D Cholesterol 197 LDL Cholesterol Direct 109 HDL Cholesterol 42 Vitamin B12 427 Folate 11.4 Free T4 1.13 TSH 3rd Generation 1.78 Urine Color Urine Clarity Urine pH Ur Specific [place] Urine Protein Urine Glucose (UA) Urine Ketones Urine Blood Urine Nitrate Urine Bilirubin Urine Urobilinogen Ur Leukocyte Esterase Urine WBC (Auto) Urine RBC (Auto) Ur Squamous Epith Cells Urine Bacteria Urine HCG, Qual Stool Occult Blood Alcohol, Quantitative Blood Type Antibody Screen 10/03/18 07:18 WBC RBC Hgb Hct MCV MCH MCHC RDW Plt Count MPV Neut % (Auto) Lymph % (Auto) Josephine % (Auto) Eos % (Auto) Baso % (Auto) Neut # (Auto) Lymph # (Auto) Josephine # (Auto) Eos # (Auto) Baso # (Auto) Differential Comment Retic Count Haptoglobin PT INR APTT D-Dimer, Quantitative Sodium Potassium Chloride Carbon Dioxide Anion Gap BUN Creatinine Est GFR ( Amer) Est GFR (Non-Af Amer) POC Glucose (mg/dL) Random Glucose Hemoglobin A1c 9.2 H Calcium Phosphorus Magnesium Iron TIBC Ferritin Total Bilirubin AST ALT Alkaline Phosphatase Lactate Dehydrogenase Total Creatine Kinase CK-MB (Mass) Troponin I Total Protein Albumin Globulin Albumin/Globulin Ratio Triglycerides Cholesterol LDL Cholesterol Direct HDL Cholesterol Vitamin B12 Folate Free T4 TSH 3rd Generation Urine Color Urine Clarity Urine pH Ur Specific [place] Urine Protein Urine Glucose (UA) Urine Ketones Urine Blood Urine Nitrate Urine Bilirubin Urine Urobilinogen Ur Leukocyte Esterase Urine WBC (Auto) Urine RBC (Auto) Ur Squamous Epith Cells Urine Bacteria Urine HCG, Qual Stool Occult Blood Alcohol, Quantitative Blood Type Antibody Screen Assessment & Plan (1) Anemia Assessment and Plan: Chronic Iron deficiency anemia due to menorrhagia, and recent iron replacement noncompliance No acute GI workup recommended Resume iron replacement D/W Dr Verdin Status: Acute (2) Family history of colon cancer in father Status: Acute - Assessment and Plan (Free Text) Assessment: D/W Dr Verdin and patient: outpatient colonoscopy recommended. Patient was provided with my contact information to schedule the procedure
--- NOTE | 2018-10-03 13:36 | CP.PCM.PN ---
Subjective - Date & Time of Evaluation Date of Evaluation: 10/03/18 Time of Evaluation: 13:36 - Subjective Subjective: Patient seen and examined at bedside this morning. Patient denies chest pain, SOB, nausea, vomiting, diarrhea, cough, wheezing. She feels well and is hungry after being NPO since admission. Patient denies known active bleeding or easy bruising or fhx of bleeding disorders. Patient states her FDLMP was 10. She changes 4 normal sized pads a day with clots. She has monthly cycles like clockwork. Objective - Vital Signs/Intake and Output Vital Signs (last 24 hours): Temp Pulse Resp BP Pulse Ox 98.7 F 75 20 120/77 95 10/03/18 08:00 10/03/18 08:00 10/03/18 08:00 10/03/18 08:00 10/03/18 08:00 Intake and Output: 10/03/18 10/03/18 06:59 18:59 Intake Total 0 Balance 0 - Medications Medications: Current Medications Dextrose (Dextrose 50% Inj) 0 ml IV STAT PRN; Protocol PRN Reason: Hypoglycemia Protocol Dextrose (Glutose 15) 0 gm PO ONCE PRN; Protocol PRN Reason: Hypoglycemia Protocol Ferric Sodium Gluconate Complex (Ferrlecit) 125 mg IVPB DAILY ACE Stop: 10/11/18 10:46 Glucagon (Glucagen Diagnostic Kit) 0 mg IM STAT PRN; Protocol PRN Reason: Hypoglycemia Protocol Dextrose (Dextrose 5% In Water 1000 Ml) 1,000 mls @ 0 mls/hr IV .Q0M PRN; Pr otocol PRN Reason: Hypoglycemia Protocol Influenza Virus Vaccine (Fluzone Quad [id number]) 60 mcg IM .ONCE ONE Stop: 10/04/18 10:01 Insulin Aspart (Novolog) 0 unit SC Q6H ACE; Protocol Last Admin: 10/03/18 13:33 Dose: 4 unit Pantoprazole Sodium (Protonix Inj) 40 mg IVP Q12H ACE Last Admin: 10/03/18 04:12 Dose: 40 mg Pneumococcal Polyvalent Vaccine (Pneumovax 23 Vaccine) 0.5 ml IM .ONCE ONE Stop: 10/04/18 10:01 - Labs Labs: 10/03/18 07:18 10/03/18 07:18 PT 11.0 SECONDS (9.7-12.2) 10/02/18 11:31 INR 1.0 10/02/18 11:31 APTT 23 SECONDS (21-34) 10/02/18 11:31 - Constitutional Appears: Well, Non-toxic - Head Exam Head Exam: ATRAUMATIC, NORMAL INSPECTION - Eye Exam Eye Exam: EOMI, Normal appearance Pupil Exam: NORMAL ACCOMODATION - ENT Exam ENT Exam: Mucous Membranes Moist, Normal Exam - Neck Exam Neck Exam: Normal Inspection - Respiratory Exam Respiratory Exam: Clear to Ausculation Bilateral, NORMAL BREATHING PATTERN - Cardiovascular Exam Cardiovascular Exam: REGULAR RHYTHM Additional comments: chest pain reproducible bilaterally pectoralis muscles upon palpation - GI/Abdominal Exam GI & Abdominal Exam: Soft, Normal Bowel Sounds. absent: Distended, Firm, Guarding, Rigid, Tenderness, Rebound - Extremities Exam Extremities Exam: Normal Capillary Refill, Normal Inspection. absent: Joint Swelling, Pedal Edema - Neurological Exam Neurological Exam: Alert, Awake, Oriented x3 - Psychiatric Exam Psychiatric exam: Normal Affect, Normal Mood - Skin Skin Exam: Dry, Intact, Warm Additional comments: Palm pallor skin Assessment and Plan - Assessment and Plan (Free Text) Assessment: Patient is a 43 year old female with PMHx of HTN, DM-2, and presenting with chest pain. Now stable on [facility] floor. chest pain r/o ACS -Patient without a history of CAD has cardiac risks of HTN, DM2, and being . Although serial EKGs, ROMIs, CXR and telemetry do not show active ischemia, patient is still at risk of heart disease and might have had transient ischemic episodes. -Monitor on telemetry -Echocardiogram: f/u - cardiology to do 10/03 -Stress test 10/04; patient to stay overnight -ASCVD 5.3% -> moderate intensity statin to prevent coronary events recommended per guidelines -cardiology following symptomatic anemia -formerly endorsed dizziness/lightheadedness, palpitations but denied at bedside this AM -likely 2/2 menorrhagia - pt endorses clots and heavy bleeding chronically for her menstrual cycles -microcytic, iron deficiency: MCV 64.7, folate and B12 wnl -Patient has a history of iron deficiency anemia, used to take iron supplements. Hb/Hct on admission: 6.8/22.8 s/p 2 PRBC overnight. Improved to 7.8/25.4. - Stool occult blood: negative - Pelvic U/S: fibroids - Iron studies pending - Heme/Onc, Dr. Rose Keane consulted, recommends outpatient iron injections and visit to OBGYN for menorrhagia -IV ferricelet ordered by Dr. Keane - GI, Dr. Moore consulted - recommends outpatient colonoscopy; patient at risk for colon CA due to family history and being , although FOBT negative T2DM - Hypoglycemia protocol - Accuchecks ACHS - HgA1C: 9.2% - Lipid panel: 199 TG, 197 chol, 109 LDL -restarted home meds lisinopril 2.5 mg PO daily and metformin 1g BID, d/brittanie ISS; pt likely d/c tomorrow after stress test HTN - lisinopril 2.5 mg PO daily -monitor VS Prophylaxis/diet: - SCD's - Chemical anticoagulants held 2/2 anemia - Protonix 40mg IV BID dispo: pending exercise stress test tomorrow, 10/04. Case discussed with Dr. Velvet Cassidy PGY1
[2018-10-03] MEDS: Ferric Sodium Gluconat Complex 125 MG in Sodium Chloride 0.9% 100 ML IVPB SCH (14:18)
[2018-10-03 18:23] LABS: BARBITURATES, UR NEGATIVE (NEGATIVE); BENZODIAZEPINES, UR NEGATIVE (NEGATIVE); OPIATES, UR NEGATIVE (NEGATIVE); PHENCYCLIDINE, UR NEGATIVE (NEGATIVE)
--- NOTE | 2018-10-03 19:09 | CARD ---
APPROVED REPORT Date of service: 10/03/2018 EXAM: Two-dimensional and M-mode echocardiogram with Doppler and color Doppler. Other Information Quality : GoodRhythm : INDICATION Chest Pain SEVER ANEMIA RISK FACTORS Hypertension Diabetes 2D DIMENSIONS IVSd0.8 (0.7-1.1cm)Aortic Root (2D)3.6 (2.0-3.7cm) LVDd5.1 (3.9-5.9cm)PWd0.9 (0.7-1.1cm) LA Ytpinr04 (18-58mL)LVDs3.1 (2.5-4.0cm) FS (%) 39.5 %LVEF (%)69.7 (>50%) LVEF ([facility])67 %IVC0.00 cm M-Mode DIMENSIONS RVDd1.88 (2.1-3.2cm)Left Atrium (MM)4.57 (2.5-4.0cm) IVSd0.77 (0.7-1.1cm)Aortic Root2.91 (2.2-3.7cm) LVDd4.76 (4.0-5.6cm)Aortic Cusp Exc.2.07 (1.5-2.0cm) PWd1.00 (0.7-1.1cm)FS (%) 37 % LVDs2.99 (2.0-3.8cm)LVEF (%)67 (>50%) Mitral Valve MV E Binshqbt796.1cm/sMV A Ffxbmigd35.5cm/sE/A ratio2.2 TDI Lateral E' Peak V12.81cm/sMedial E' Peak V8.61cm/sE/Lateral E'9.1 E/Medial E'13.6 Tricuspid Valve TR Peak Izygdgxy913yc/sTR Peak Gr.[id number] LEFT VENTRICLE The left ventricle is normal size. There is normal left ventricular wall thickness. Left ventricle systolic function is normal. The Ejection Fraction is 65-70%. There is normal LV segmental wall motion. The left ventricular diastolic function is normal. No left ventricle thrombus noted on this study. RIGHT VENTRICLE The right ventricle is normal size. The right ventricular systolic function is normal. ATRIA The left atrium is mildly dilated. The right atrium size is normal. AORTIC VALVE The aortic valve is mildly thickened. The aortic valve is trileaflet. No aortic regurgitation is present. There is no aortic valvular stenosis. There is no aortic valvular vegetation. MITRAL VALVE Mitral annular calcification is mild. There is no evidence of mitral valve prolapse. There is no mitral valve stenosis. Mitral regurgitation is mild. TRICUSPID VALVE The tricuspid valve is normal in structure. There is trace to mild tricuspid regurgitation. Right ventricular systolic pressure is estimated at less than 30 mmHg. There is no pulmonary hypertension. There is no tricuspid valve prolapse or vegetation. There is no tricuspid valve stenosis. PULMONIC VALVE The pulmonary valve is normal in structure. There is no pulmonic valvular regurgitation. There is no pulmonic valvular stenosis. GREAT VESSELS The aortic root is normal in size. The IVC is normal in size and collapses >50% with inspiration. PERICARDIAL EFFUSION There is no pericardial effusion. There is no pleural effusion. <Conclusion> The left ventricle is normal size. Left ventricle systolic function is normal. The Ejection Fraction is 65-70%. The left ventricular diastolic function is normal. The right ventricle is normal size. The right ventricular systolic function is normal. The left atrium is mildly dilated. The right atrium size is normal. Mitral regurgitation is mild. There is trace to mild tricuspid regurgitation.
--- NOTE | 2018-10-03 19:31 | CARD ---
APPROVED REPORT Date of service: 10/03/2018 EKG Measurement Heart [id number] <Conclusion> Normal sinus rhythm Normal ECG
[2018-10-03] MEDS ORDERED: Aspirin 325 mg EC Tablets PO STA (21:21)
[2018-10-03 22:08] LABS: CK-MB < 0.22 ng/mL (0.0-3.38)
[2018-10-04] MEDS: (Novolog) Insulin Aspart, Recombinant 100 u/ml 10 ml vial SC SCH ×2 (05:37→12:26)
[2018-10-04 06:16] LABS: BASO # 0.1 K/uL (0.0-0.2); BASO % 0.9 % (0.0-2.0); EOS # 0.1 K/uL (0.0-0.7); EOS % 1.9 % (0.0-4.0); HEMOGLOBIN 7.8 g/dL (11.0-16.0); LYMPH # 2.7 K/uL (1.0-4.3); LYMPH % 37.5 % (20.0-40.0); MEAN CELL VOLUME 65.2 fL (81.0-99.0); MEAN CORPUSCULAR HEMOGLOBIN 19.9 pg (27.0-31.0); MEAN CORPUSCULAR HGB CONC 30.5 g/dL (33.0-37.0); MEAN PLATELET VOLUME 9.7 fL (7.2-11.7); MONO # 0.5 K/uL (0.0-0.8); MONO % 7.3 % (0.0-10.0); NEUT # 3.8 K/uL (1.8-7.0); NEUT % 52.4 % (50.0-75.0); NRBC % 0.1 % (0.0-2.0); RBC 3.9 Mil/uL (3.80-5.20); RED CELL DISTRIBUTION WIDTH 24.2 % (11.5-14.5); WHITE BLOOD COUNT 7.3 K/uL (4.8-10.8)
[2018-10-04 06:34] LABS: ALBUMIN 3.7 g/dL (3.5-5.0); ALT/SGPT 14 U/L (9-52); AST/SGOT 24 U/L (14-36); BLOOD UREA NITROGEN 12 mg/dL (7-17); CALCIUM 8.7 mg/dl (8.6-10.4); GFR NON-AFRICAN AMERICAN > 60
--- NOTE | 2018-10-04 07:33 | CP.PCM.PN ---
Subjective - Date & Time of Evaluation Date of Evaluation: 10/04/18 Time of Evaluation: 07:30 - Subjective Subjective: Cody Delaney, PGY-[address] Diaz Patient seen and examined at bedside. Patient reports having slept well. Patient reported throbbing on the right side of her chest early last night that was resolved with Tylenol. Patient denies chest pain, palpitations, and shortness of breath currently. Objective - Vital Signs/Intake and Output Vital Signs (last 24 hours): Temp Pulse Resp BP Pulse Ox 98.2 F 74 20 109/72 99 10/04/18 00:00 10/04/18 00:00 10/04/18 00:00 10/04/18 00:00 10/04/18 00:00 - Medications Medications: Current Medications Dextrose (Dextrose 50% Inj) 0 ml IV STAT PRN; Protocol PRN Reason: Hypoglycemia Protocol Dextrose (Glutose 15) 0 gm PO ONCE PRN; Protocol PRN Reason: Hypoglycemia Protocol Glucagon (Glucagen Diagnostic Kit) 0 mg IM STAT PRN; Protocol PRN Reason: Hypoglycemia Protocol Dextrose (Dextrose 5% In Water 1000 Ml) 1,000 mls @ 0 mls/hr IV .Q0M PRN; Pro tocol PRN Reason: Hypoglycemia Protocol Ferric Sodium Gluconate Complex 125 mg/ Sodium Chloride 110 mls @ 110 mls/hr IVPB DAILY ACE Stop: 10/11/18 14:31 Last Admin: 10/03/18 14:18 Dose: 110 mls/hr Influenza Virus Vaccine (Fluzone Quad [id number]) 60 mcg IM .ONCE ONE Stop: 10/04/18 10:01 Insulin Aspart (Novolog) 0 unit SC Q6H ACE; Protocol Last Admin: 10/04/18 05:37 Dose: 2 unit Lisinopril (Zestril) 2.5 mg PO DAILY ACE Stop: 10/09/18 10:01 Metformin HCl (Glucophage) 1,000 mg PO BIDCC [facility] Last Admin: 10/03/18 17:00 Dose: 1,000 mg Pantoprazole Sodium (Protonix Inj) 40 mg IVP Q12H ACE Last Admin: 10/04/18 03:52 Dose: 40 mg Pneumococcal Polyvalent Vaccine (Pneumovax 23 Vaccine) 0.5 ml IM .ONCE ONE Stop: 11/08/18 10:01 - Labs Labs: 10/04/18 06:07 10/04/18 06:07 PT 11.0 SECONDS (9.7-12.2) 10/02/18 11:31 INR 1.0 10/02/18 11:31 APTT 23 SECONDS (21-34) 10/02/18 11:31 - Additional Findings Additional findings: - Constitutional Appears: Well, Non-toxic, No Acute Distress - Head Exam Head Exam: ATRAUMATIC, NORMOCEPHALIC - Respiratory Exam Respiratory Exam: Clear to Auscultation Bilateral, NORMAL BREATHING PATTERN, Chest Wall Tenderness - Cardiovascular Exam Cardiovascular Exam: RRR, +S1, +S2. absent: JVD - Extremities Exam Extremities exam: Negative for: pedal edema - Skin Skin Exam: Dry, Intact, Normal Color, Warm Assessment and Plan - Assessment and Plan (Free Text) Assessment: Assessment: Ms. Hannah is a 43 year old F with PMHx of DM, HTN, and Fe Def anemia s/p 2 units PRBC transfusion who presents with atypical chest pain. Plan for regular exercise stress test this morning. Atypical chest pain Troponins negative x3 EKG upon presentation shows NSR @ 67 bpm, no ST or T wave changes, f/u final read Echo 10/02/18 reading - EF>65%, mildly dilated LA, mild MR and TR Exercise stress test today equivocal. If symptoms return, patient informed to return to perform nuclear stress test at a later date for greater anatomical visibility of the cardiac muscle Begun on ASA 81 mg PO, Losartan 25 mg PO, Toprol XL 12.5 mg PO. Stop Lisinopril Can be discharged on medical therapy as above when medically appropriate Reviewed importance of close outpatient follow up Microcytic Fe Deficiency Anemia Hgb 6.8 on admission, MCV 60s, improved to 7.8 s/p 2 units PRBC transfused Currently not on ASA, NSAID or antiplatelet therapy due to risk of bleeding Continue to monitor as per GI and Hem recommendations Patient seen, case reviewed. Further recs per Dr. Diaz. Cody Delaney, PGY-1
[2018-10-04] MEDS ORDERED: Influenza Vaccine 60 MCG/0.5 ML SYR (3 yr & up) IM ONE (10:00)
[2018-10-04] MEDS ORDERED: Pneumococcal 23-Valent Vaccine IM ONE (10:00)
[2018-10-04] MEDS: Ferric Sodium Gluconat Complex 125 MG in Sodium Chloride 0.9% 100 ML IVPB SCH (11:27)
--- NOTE | 2018-10-04 13:03 | CP.PCM.DIS ---
Provider - Provider Date of Admission: 10/02/18 14:23 Attending physician: Nilam Verdin DO Primary care physician: Jeannette Consults: Joe (cardio), Oscar (GI), Lakhwinder (heme onc) Time Spent in preparation of Discharge (in minutes): 45 Hospital Course - Lab Results Lab Results: Most Recent Lab Values WBC 7.3 K/uL (4.8-10.8) 10/04/18 06:07 RBC 3.90 Mil/uL (3.80-5.20) 10/04/18 06:07 Hgb 7.8 g/dL (11.0-16.0) L 10/04/18 06:07 Hct 25.5 % (34.0-47.0) L 10/04/18 06:07 MCV 65.2 fL (81.0-99.0) L 10/04/18 06:07 MCH 19.9 pg (27.0-31.0) L 10/04/18 06:07 MCHC 30.5 g/dL (33.0-37.0) L 10/04/18 06:07 RDW 24.2 % (11.5-14.5) H 10/04/18 06:07 Plt Count 242 K/uL (130-400) 10/04/18 06:07 MPV 9.7 fL (7.2-11.7) 10/04/18 06:07 Neut % (Auto) 52.4 % (50.0-75.0) 10/04/18 06:07 Lymph % (Auto) 37.5 % (20.0-40.0) 10/04/18 06:07 [place] % (Auto) 7.3 % (0.0-10.0) 10/04/18 06:07 Eos % (Auto) 1.9 % (0.0-4.0) 10/04/18 06:07 Baso % (Auto) 0.9 % (0.0-2.0) 10/04/18 06:07 Neut # (Auto) 3.8 K/uL (1.8-7.0) 10/04/18 06:07 Lymph # (Auto) 2.7 K/uL (1.0-4.3) 10/04/18 06:07 [place] # (Auto) 0.5 K/uL (0.0-0.8) 10/04/18 06:07 Eos # (Auto) 0.1 K/uL (0.0-0.7) 10/04/18 06:07 Baso # (Auto) 0.1 K/uL (0.0-0.2) 10/04/18 06:07 Differential Comment 10/02/18 11:31 Retic Count 2.8 % (0.5-1.5) H 10/02/18 14:38 Haptoglobin 178.6 mg/dL (30.0-200.0) 10/03/18 07:18 PT 11.0 SECONDS (9.7-12.2) 10/02/18 11:31 INR 1.0 10/02/18 11:31 APTT 23 SECONDS (21-34) 10/02/18 11:31 D-Dimer, Quantitative < 200 ng/mlDDU (0-243) 10/02/18 11:31 Sodium 134 mmol/L (132-148) 10/04/18 06:07 Potassium 4.3 mmol/L (3.6-5.2) 10/04/18 06:07 Chloride 103 mmol/L (98-107) 10/04/18 06:07 Carbon Dioxide 25 mmol/L (22-30) 10/04/18 06:07 Anion Gap 10 (10-20) 10/04/18 06:07 BUN 12 mg/dL (7-17) 10/04/18 06:07 Creatinine 0.5 mg/dL (0.7-1.2) L 10/04/18 06:07 Est GFR ( Amer) > 60 10/04/18 06:07 Est GFR (Non-Af Amer) > 60 10/04/18 06:07 POC Glucose (mg/dL) 283 mg/dL (65-110) H 10/04/18 11:07 Random Glucose 259 mg/dL (65-105) H 10/04/18 06:07 Hemoglobin A1c 9.2 % (4.2-6.5) H 10/03/18 07:18 Calcium 8.7 mg/dl (8.6-10.4) 10/04/18 06:07 Phosphorus 3.6 mg/dL (2.5-4.5) 10/04/18 06:07 Magnesium 2.0 mg/dL (1.6-2.3) 10/04/18 06:07 Iron 14 ug/dL (37-170) L 10/02/18 14:38 TIBC 406 ug/dL (250-450) 10/02/18 14:38 Ferritin 4.2 ng/mL 10/02/18 14:38 Total Bilirubin 0.4 mg/dL (0.2-1.3) 10/04/18 06:07 AST 24 U/L (14-36) 10/04/18 06:07 ALT 14 U/L (9-52) 10/04/18 06:07 Alkaline Phosphatase 89 U/L (38-126) 10/04/18 06:07 Lactate Dehydrogenase 489 U/L (313-618) 10/02/18 14:38 Total Creatine Kinase 52 U/L (30-135) 10/03/18 21:33 CK-MB (Mass) < 0.22 ng/mL (0.0-3.38) 10/03/18 21:33 Troponin I < 0.0120 ng/mL (0.00-0.120) 10/03/18 21:33 Total Protein 7.2 g/dL (6.3-8.3) 10/04/18 06:07 Albumin 3.7 g/dL (3.5-5.0) 10/04/18 06:07 Globulin 3.5 gm/dL (2.2-3.9) 10/04/18 06:07 Albumin/Globulin Ratio 1.0 (1.0-2.1) 10/04/18 06:07 Triglycerides 199 mg/dL (0-149) H D 10/03/18 07:18 Cholesterol 197 mg/dL (0-199) 10/03/18 07:18 LDL Cholesterol Direct 109 mg/dL (0-129) 10/03/18 07:18 HDL Cholesterol 42 mg/dL (30-70) 10/03/18 07:18 Vitamin B12 427 pg/mL (239-931) 10/03/18 07:18 Folate 11.4 ng/mL 10/03/18 07:18 Free T4 1.13 ng/dL (0.78-2.19) 10/03/18 07:18 TSH 3rd Generation 1.78 mIU/L (0.46-4.68) 10/03/18 07:18 Urine Color Straw (YELLOW) 10/02/18 11:31 Urine Clarity Clear (Clear) 10/02/18 11:31 Urine pH 5.0 (5.0-8.0) 10/02/18 11:31 Ur Specific [place] 1.029 (1.003-1.030) 10/02/18 11:31 Urine Protein 2+ mg/dL (NEGATIVE) H 10/02/18 11:31 Urine Glucose (UA) 3+ mg/dL (Normal) H 10/02/18 11:31 Urine Ketones Negative mg/dL (NEGATIVE) 10/02/18 11:31 Urine Blood Negative (NEGATIVE) 10/02/18 11:31 Urine Nitrate Negative (NEGATIVE) 10/02/18 11:31 Urine Bilirubin Negative (NEGATIVE) 10/02/18 11:31 Urine Urobilinogen Normal mg/dL (0.2-1.0) 10/02/18 11:31 Ur Leukocyte Esterase Trace [place]/uL (Negative) 10/02/18 11:31 Urine WBC (Auto) 7 /hpf (0-5) H 10/02/18 11:31 Urine RBC (Auto) 2 /hpf (0-3) 10/02/18 11:31 Ur Squamous Epith Cells 3 /hpf (0-5) 10/02/18 11:31 Urine Bacteria Rare (<OCC) 10/02/18 11:31 Urine HCG, Qual Negative (NEGATIVE) 10/02/18 11:31 Stool Occult Blood Negative (NEGATIVE) 10/02/18 14:19 Urine Opiates Screen Negative (NEGATIVE) 10/03/18 18:00 Urine Methadone Screen Negative (NEGATIVE) 10/03/18 18:00 Ur Barbiturates Screen Negative (NEGATIVE) 10/03/18 18:00 Ur Phencyclidine Scrn Negative (NEGATIVE) 10/03/18 18:00 Ur Amphetamines Screen Negative (NEGATIVE) 10/03/18 18:00 U Benzodiazepines Scrn Negative (NEGATIVE) 10/03/18 18:00 U Oth Cocaine Metabols Negative (NEGATIVE) 10/03/18 18:00 U Cannabinoids Screen Negative (NEGATIVE) 10/03/18 18:00 Alcohol, Quantitative < 10 mg/dl (0-10) 10/02/18 14:39 Blood Type A POSITIVE 10/02/18 14:38 Antibody Screen Negative 10/02/18 14:38 - Hospital Course Hospital Course: On presentation: Patient is a 43 year old female with PMHx of HTN, DM-2, and presenting with chest pain. 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 She describes the pain as having a pinching quality, located on her left and right side of her chest, and 5/10 in severity. She states that she took some ibuprofen and the chest pain resolved. However, the pain started again this morning at 3AM when she was walking to the bathroom. She states that she also noticed palpitations and decided to go to the ED. Patient states that she has been having palpitations for the past month. She describes the palpitations to be intermittent and only last a few seconds. She states that Ibuprofen makes the pain better and laying completely flat makes the pain worse. Patient states that she was diagnosed with iron deficiency anemia when she was 23. She denies ever having a blood transfusion. She denies chest pain on exertion, diaphoresis, pain radiating to her neck or extremities. She further denies fevers, chills, cough, shortness of breath, abdominal pain, nausea, vomiting, melena, hematemesis, hematochezia, hematuria, or other urinary symptoms. On discharge: 43 year old female with PMHx of DM presented to the hospital with chest pain and palpitations. Two days ago she felt the chest pain at work after lifting a heavy patient from the floor, which resolved with ibuprofen. She decided to go to the ED as she noticed palpitations the morning of admission. CXR, serial EKGs and serial ROMIs were negative for cardiac ischemia. Telemetry constant monitor on the floor has also consistently been negative for ischemia. Of note, on admission, Hg was found to be low and 2 packed red blood cells packs were transfused overnight. Upon questioning the patient, the medicine team noted that she has been taking iron supplements for about 20 years but ran out of [employer] so has not been taking it. She also ran out of her routine DM medications and HTN pill. Due to her anemia, heme onc was consulted. Pelvic US noted fibroids and patient endorsed heavy clot like bleeding as her baseline menses. Heme onc and medicine recommends follow up with OBGYN for possible interventions to decrease or stop the heavy menstrual cycle in order to increase Hg retirement. Finally, patient had an exercise stress test as cardio was also a consult during hospitalization. The stress test was negative for ischemia. However, she is to follow up and take medications to prevent coronary events. Discharge instructions: Patient is to see the following providers: -OBGYN for uterine fibroids/menstrual bleeding -Cardiology: Dr. Diaz -Heme/Onc: Dr. Keane, for low iron follow up, possibly discuss routine iron injections -GI: Dr. Moore - colonoscopy screen -PMD: Dr. Machado - for general health concerns and referrals as needed. Dr. Raphael has been recommended by Dr. Verdin today as someone who might accept your insurance. Patient is to take the following medications: -aspirin 81 mg daily - 1 tab by mouth daily -losartan 25 mg daily -colace 100 mg daily twice a day -ferrous sulfate 325 mg by mouth tree times a day (take with orange juice; vitamin c helps iron absorption) -glipizide 5 mg once a day -use glucometer to measure glucose before meals. Record and follow up with a blood sugar log with your primary care physician If you feel resuming chest pain, shortness of breath, palpitations, dizziness/lightheadedness, please go to the nearest emergency room. Patient agrees to the above instructions. *note: Above is just a summary of hospital events. Please see full medical record for a complete history. - Date & Time of H&P Date of H&P: 10/04/18 Time of H&P: 12:55 Discharge Exam - Head Exam Head Exam: ATRAUMATIC, NORMAL INSPECTION Discharge Plan - Discharge Medications Prescriptions: Aspirin [Ecotrin] 81 mg PO DAILY #30 tabec Docusate Sodium [Colace] 100 mg PO BID #60 capsule Ferrous Sulfate 325 mg PO TID #90 tablet GlipiZIDE [Glucotrol] 5 mg PO DAILY #30 tab Losartan [Cozaar] 25 mg PO DAILY #30 tab metFORMIN [glucOPHAGE] 1,000 mg PO BIDCC #60 tab - Follow Up Plan Condition: FAIR Disposition: HOME/ ROUTINE Instructions: Anemia Caused by Low Iron, Adult (DC), Diabetes Diet , Aspirin, Ferrous Sulfate, Losartan, Metformin Additional Instructions: Discharge instructions: Patient is to see the following providers: -OBGYN for uterine fibroids/menstrual bleeding -Cardiology: Dr. Diaz -Heme/Onc: Dr. Keane, for low iron follow up, possibly discuss routine iron injections -GI: Dr. Moore - colonoscopy screen -PMD: Dr. Machado - for general health concerns and referrals as needed. Dr. Raphael has been recommended by Dr. Verdin today as someone who might accept your insurance. Patient is to take the following medications: -aspirin 81 mg daily - 1 tab by mouth daily -losartan 25 mg daily -colace 100 mg daily twice a day -ferrous sulfate 325 mg by mouth tree times a day (take with orange juice; vitamin c helps iron absorption) -glipizide 5 mg once a day -use glucometer to measure glucose before meals. Record and follow up with a blood sugar log with your primary care physician If you feel resuming chest pain, shortness of breath, palpitations, dizziness/lightheadedness, please go to the nearest emergency room. Referrals: Luis Keane MD [Staff Provider] - Onesimo Diaz MD [Staff Provider] - Blanca Machado MD [Staff Provider] - Junior Moore MD [Staff Provider] -
[2018-10-04 16:56] VITALS: BP 149/92; PULSE 82; TEMP 98.7; O2SAT 97
--- NOTE | 2018-10-04 21:39 | CARD ---
APPROVED REPORT Date of service: 10/03/2018 EKG Measurement Heart [id number] <Conclusion> Normal sinus rhythm Normal ECG
[2018-10-05 07:40] LABS: MCH 20.1 pg (27.0-33.0); MCV 68.1 fL (80.0-100.0)
[2018-10-05] MEDS ORDERED: Metoprolol Succinate 12.5 mg XL Tab PO SCH (10:00)
--- NOTE | 2018-10-05 23:59 | CARD ---
APPROVED REPORT Date of service: 10/02/2018 EKG Measurement Heart [id number] <Conclusion> Normal sinus rhythm Normal ECG
== END 2018-10-04 17:28 | disposition home or self-care (01) ==
LOC: C.ER 10:26 → C.9E 14:23 → C.6T 15:13 → C.9E 15:21 → C.6T 15:59 → C.9E 17:10 → C.5S 17:45
PROVIDERS: ADMIT Hospitalist; ATTEND Hospitalist
DX: D50.0 Iron deficiency anemia secondary to blood loss (chronic) (principal); E11.9 Type 2 diabetes mellitus without complications; I10 Essential (primary) hypertension; N92.0 Excessive and frequent menstruation with regular cycle; N93.8 Other specified abnormal uterine and vaginal bleeding; Z80.0 Family history of malignant neoplasm of digestive organs; D25.9 Leiomyoma of uterus, unspecified; Z83.3 Family history of diabetes mellitus
CPT/HCPCS: 36415; 36430; 71045; 76856; 80053; 80061; 80320; 80324; 80345; 80346; 80349; 80353; 80358; 80361; 81001; 82550; 82553; 82607; 82728; 82746; 82948; 83010; 83021; 83036; 83540; 83550; 83615; 83735; 83992; 84100; 84439; 84443; 84484; 84703; 85014; 85018; 85025; 85027; 85041; 85044; 85378; 85610; 85730; 86850; 86900; 86920; 90471; 90674; 90732; 93005; 93017; 93306; 99285; C9113; G0328; G0378; J2916; P9051

== ENCOUNTER 2019-01-02 06:27 | Day surgery (SDC) | payer OTHER ==
[2019-01-02] MEDS ORDERED: Lidocaine Hydrochloride 5 ML INJ ONE (08:33)
[2019-01-02] MEDS ORDERED: Propofol 10 mg/ml Inj (20 ML) ONE (08:33)
--- NOTE | 2019-01-02 08:38 | CP.SDSHP ---
Same Day Surgery H & P - History Proposed Procedure: colonoscopy Pre-Op Diagnosis: family history of colon cancer - Previous Medical/Surgical History Cardiac: Hypertension Endocrine/Metabolic: Diabetes Misc: Anemia Previous Surgical History: none - Allergies Allergies: Allergies Penicillins Allergy (Verified 01/01/19 14:09) RASH - Current Medications Current Medications: reviewed, per reconciliation - Physical Exam General Appearance: wdwn nad Vital Signs: Vital Signs 01/02/19 07:12 Temperature 98.2 F Pulse Rate 68 Respiratory 18 Rate Blood Pressure 146/80 O2 Sat by Pulse 98 Oximetry Mental Status: Alert & Oriented x3 Heart: WNL Lungs: WNL GI: WNL - {Optional Preform as Required} Abdomen: WNL - Impression Impression: family history of colon cancer Pt. Evaluated Today:Candidate for Anesthesia & Procedure: Yes - Date & Time Date: 01/02/19 Time: 08:37 Short Stay Discharge - Short Stay Discharge Admitting Diagnosis/Reason for Visit: F/H COLON CANCER Disposition: HOME/ ROUTINE
[2019-01-02 09:24] VITALS: O2SAT 100
[2019-01-02 09:56] VITALS: RESP 16
[2019-01-02 10:45] VITALS: BP 114/70; PULSE 70; TEMP 98.2
== END 2019-01-02 10:40 | disposition home or self-care (01) ==
LOC: C.ENDO 06:27
PROVIDERS: ATTEND Internal Medicine Gastroenterology
DX: Z12.11 Encounter for screening for malignant neoplasm of colon (principal); K64.0 First degree hemorrhoids; Z80.0 Family history of malignant neoplasm of digestive organs; I10 Essential (primary) hypertension; E11.9 Type 2 diabetes mellitus without complications; D64.9 Anemia, unspecified
CPT/HCPCS: 82948; 84703; G0105; J2704

== ENCOUNTER 2019-02-22 13:34 | Outpatient (CLI) | payer OTHER | END 2019-02-22 13:35 | disposition home or self-care (01) | LOC: C.RADH 13:34 ==